=== PATIENT | female | born 1970 | race Caucasian/White ===

== ENCOUNTER 2021-08-30 12:49 | Outpatient (REF) | payer MEDICARE, MEDICAID, SELFPAY ==
--- NOTE | ~2021-08-30 | MR_ITS ---
EXAMINATION: MR BRAIN WITHOUT AND WITH CONTRAST CLINICAL INFORMATION: Epilepsy. COMPARISON: No relevant prior imaging. TECHNIQUE: Multiplanar MR imaging of the brain was performed without and with contrast. A total of 10 mL Gadavist was utilized for this examination. FINDINGS: Dedicated coronal oblique imaging through the temporal lobes reveals symmetric size, signal intensity, and morphological appearance of the hippocampal limitations. No evidence of mesial temporal sclerosis. Postcontrast images reveal no abnormal intracranial mass or enhancement. There is no intracranial mass effect or midline shift. Lateral and third ventricles are normal. No hydrocephalus. Midline structures including the cervicomedullary junction are normal. No acute bone marrow signal changes. There is no acute territorial infarct. No pathological magnetic susceptibility artifact. Intracranial vascular flow voids are maintained. There is a trace left mastoid tip effusion. No active paranasal sinus disease. MR/MR head/brain wo/w con IMPRESSION: Unremarkable examination in that there is no discrete anatomic finding to provide an explanation for this patient's seizures.
== END 2021-08-30 12:50 | disposition home or self-care (01) ==
LOC: HO.MRI 12:49
PROVIDERS: Visit Provider Psychiatry & Neurology Neurology
DX: G40.909 Epilepsy, unspecified, not intractable, without status epilepticus (principal)
CPT/HCPCS: 70553; A9585

== ENCOUNTER 2023-01-07 12:44 | Outpatient (REF) | payer OTHER, SELFPAY ==
[2023-01-07 15:01] LABS: Valproate 72.9 mcg/mL (50.0-100.0)
[2023-01-07 15:08] LABS: Alanine Aminotransferase 8 U/L (0-31); Albumin Level 4.4 g/dL (3.5-5.0); Alkaline Phosphatase 72 U/L (39-117); Aspartate Amino Transferase 10 U/L (5-31); Bilirubin Direct < 0.2 mg/dL (0.0-0.5); Bilirubin Total 0.2 mg/dL (0.0-1.0); Total Protein 7.5 g/dL (6.5-8.0)
== END 2023-01-07 12:45 | disposition home or self-care (01) ==
LOC: HO.LAB 12:44
PROVIDERS: PCP Internal Medicine; Visit Provider Psychiatry & Neurology Neurology
DX: G40.909 Epilepsy, unspecified, not intractable, without status epilepticus (principal)
CPT/HCPCS: 36415; 80076; 80164

== ENCOUNTER 2023-01-22 09:31 | Outpatient (REF) | payer OTHER, SELFPAY ==
--- NOTE | ~2023-01-22 | XR_ITS ---
EXAMINATION: XR HIP, LEFT WITH PELVIS XR LEFT KNEE CLINICAL INFORMATION: Knee pain. Hip pain. COMPARISON: None available. TECHNIQUE: AP view of the pelvis as well as AP and lateral views of the left hip. AP, lateral and sunrise views of the left knee. FINDINGS: Left Knee: Trace joint effusion. Small tricompartmental osteophytes. Mild narrowing of the medial and patellofemoral compartments. AP Pelvis and Left Hip: Degenerative changes on limited views of the lower lumbar spine. Degenerative changes in the bilateral sacroiliac joints, left greater than right. Moderate degenerative changes in the left hip with joint space narrowing and hypertrophic change. Small pelvic calcifications are likely vascular. Moderate degenerative changes on AP view of the right hip. XR/XR knee LT 3V IMPRESSION: 1. Mild degenerative changes left knee. 2. Moderate degenerative changes left hip. MRI recommended if there is clinical concern for fracture or other associated pathology.
--- NOTE | ~2023-01-22 | XR_ITS ---
EXAMINATION: XR HIP, LEFT WITH PELVIS XR LEFT KNEE CLINICAL INFORMATION: Knee pain. Hip pain. COMPARISON: None available. TECHNIQUE: AP view of the pelvis as well as AP and lateral views of the left hip. AP, lateral and sunrise views of the left knee. FINDINGS: Left Knee: Trace joint effusion. Small tricompartmental osteophytes. Mild narrowing of the medial and patellofemoral compartments. AP Pelvis and Left Hip: Degenerative changes on limited views of the lower lumbar spine. Degenerative changes in the bilateral sacroiliac joints, left greater than right. Moderate degenerative changes in the left hip with joint space narrowing and hypertrophic change. Small pelvic calcifications are likely vascular. Moderate degenerative changes on AP view of the right hip. XR/XR hip LT w PEL1V IMPRESSION: 1. Mild degenerative changes left knee. 2. Moderate degenerative changes left hip. MRI recommended if there is clinical concern for fracture or other associated pathology.
== END 2023-01-22 09:32 | disposition home or self-care (01) ==
LOC: HO.HOSX 09:31
PROVIDERS: Visit Provider Physical Medicine & Rehabilitation
DX: M53.3 Sacrococcygeal disorders, not elsewhere classified (principal); M25.552 Pain in left hip; M25.562 Pain in left knee; M54.9 Dorsalgia, unspecified; Z79.899 Other long term (current) drug therapy; G89.29 Other chronic pain
CPT/HCPCS: 73502; 73562; 99202

== ENCOUNTER 2023-01-22 09:31 | Outpatient (AMB) | payer MEDICARE, MEDICAID, SELFPAY ==
--- NOTE | 2023-01-22 09:35 | A.OFFVIS_ITS ---
Intake Vital Signs 01/22/23 09:52 Height 5 ft 5 in Weight 320 lb BMI 53.2 Intake Visit Reasons: [employer]-Back pain Intake Note: Rosi 52 yr old female presents today for a new patient visit for an evaluation of her back pain. States she has had back pain about 1 yr. States she fell about 1 yr ago and felt severe pain about 6 months after. States she has tried and failed P.T. Patient presents today with her sister Nabil(partner alliance manager) states her sisters pain is from her mid lower back. Denies radiating pain to legs. States wearing a back brace helps. 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 Alegria ([facility]), referred from for back pain. Here with sister Nabil. Used to be semi independent but with onset of pain, needing more assistance. Can walk and transfers without assistive device. Assistance with stairs and bathroom. Fell 1 year ago. 6 months later started having back pain. Had PT without relief. Xray done, told to have arthritis. Sister thinks she's just coping with it. She takes tylenol and does stretches. Wearing a back brace which helps. Midline, right sided back pain. Sisters tries to do massage. Non radiation. Has not been complaining of numbness. Gait seems to be baseline. No bladder/bowel changes. 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 She answers questions appropriately. MSK: No specific abnormalities found on inspection of the spine and all extremities. No pain with palpation over the lumbar area. She winced when palpating right SI joint. Lumbar ROM was full. Bilateral hip, knee and ankle ROM WNL. No ligamentous laxity or crepitance. No increased effusion. During gait, she appeared to be favoring left side. Neurological: She said she could not lift hip up (weak left hip flexor?) due to knee pain left. Rest of MMT 5/5. Hernandez?s negative bilaterally. Babinski was down going bilaterally. Clonus was negative. Results Reviewed Results Reviewed: lumbar xray done at 11/07/22 showed loss of disc space at L5-S1 and facet arthritis. I reviewed records from the following: PCP at Assessment & Plan Assessment & Plan (1) Sacroiliac joint dysfunction of left side: Code(s): M53.3 - Sacrococcygeal disorders, not elsewhere classified (2) Left hip pain: Code(s): M25.552 - Pain in left hip (3) Left knee pain: Code(s): M25.562 - Pain in left knee Qualifiers: Chronicity: chronic Qualified Code(s): M25.562 - Pain in left knee; G89.29 - Other chronic pain Plan She was referred for back pain. She had a fall last year. Xrays done at did not report fracture but possible disc space narrowing L5-S1. Her pain is non radicular or she at least does not complain. It appears to be on the SI joint. She has done PT. Massage or manipulation seemed to have helped. Will refer her to chiropractor to work on the SI joint more. As for question of chronic left knee pain and hip flexor weakness, could be related to arthritis? Will do hip and knee xray left today. Assessment and plan discussed with patient, and patient was agreeable. All questions were answered thoroughly. Follow-up in March. Call sooner if pain is more severe. Dary Gu MD, GEORGI Board Certified, [place] Board of Physical Medicine and Rehabilitation (ABPMR) Board Certified, [place] Board of Electrodiagnostic Medicine (ABEM) Orders: Orders XR knee LT 3V Today M25.50 - Pain in unspecified joint XR hip LT min 2V Today M25.552 - Pain in left hip, M25.562 - Pain in left knee Referrals Chiropractic Referral M25.552 - Pain in left hip, M25.562 - Pain in left knee, M53.3 - Sacrococcygeal disorders, not elsewhere classified Coding Level of Care Code New Pt Level 4 (68341) Diagnoses Sacroiliac joint dysfunction of left side M53.3 Left hip pain M25.552 Chronic pain of left knee M25.562; G89.29 Chronicity: chronic
[2023-01-22 09:52] VITALS: BMI 53.2
== END 2023-01-22 10:25 | disposition home or self-care (01) ==
PROVIDERS: Visit Provider Physical Medicine & Rehabilitation
DX: M53.3 Sacrococcygeal disorders, not elsewhere classified (principal); M25.552 Pain in left hip; M25.562 Pain in left knee; G89.29 Other chronic pain
CPT/HCPCS: 99204

== ENCOUNTER 2023-03-25 09:49 | Outpatient (AMB) | payer OTHER, SELFPAY ==
--- NOTE | 2023-03-25 09:51 | A.OFFVIS_ITS ---
Intake Intake Visit Reasons: ov-Left hip pain and knee Intake Note: Rosi is a 53 year old female who presents today with her sister for a follow up of her left hip and back pain. At her last visit with us in january she was referred to chiropractic. She continues to complain of back pain, she has been going to the chiropractor once a week since her last visit with no changes. Increased pain with cold weather. 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 Alegria ([facility]), referred from for back pain. Here with sister Nabil. Used to be semi independent but with onset of pain, needing more assistance. Can walk and transfers without assistive device. Assistance with stairs and bathroom. Fell 1 year ago. 6 months later started having back pain. Had PT without relief. Xray done, told to have arthritis. Sister thinks she's just coping with it. She takes tylenol and does stretches. Wearing a back brace which helps. Midline, right sided back pain. Sisters tries to do massage. Non radiation. Has not been complaining of numbness. Gait seems to be baseline. No bladder/bowel changes. On last visit, she showed signs of SI joint tenderness as well as hip and knee pain, left. She's been going to chiropractor with some relief. She continues to complain of low back pain. Left knee xray showed spurs on patella, laterall displaced on sunrise view. Left hip xray showed mild-moderate space loss. 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 She answers questions appropriately. MSK: No specific abnormalities found on inspection of the spine and all extremities. Diffusely tender, lower back paraspinals and bilateral SI joint. Lumbar ROM was full. Bilateral hip, knee and ankle ROM WNL. No ligamentous laxity or crepitance. No increased effusion. But she complained when ranging hip joints. Bilateral fabere caused back pain, not groni pain. Needed help to lift legs up the table. Neurological: Rest of MMT 5/5. Hernandez?s negative bilaterally. Babinski was down going bilaterally. Clonus was negative. Results Reviewed Results Reviewed: Ordering Physician: Dary Toussaint Date of Service: 01/22/23 Procedure(s): XR knee LT 3V Accession Number(s): [id number] cc: Dary Toussaint~ EXAMINATION: XR HIP, LEFT WITH PELVIS XR LEFT KNEE CLINICAL INFORMATION: Knee pain. Hip pain. COMPARISON: None available. TECHNIQUE: AP view of the pelvis as well as AP and lateral views of the left hip. AP, lateral and sunrise views of the left knee. FINDINGS: Left Knee: Trace joint effusion. Small tricompartmental osteophytes. Mild narrowing of the medial and patellofemoral compartments. AP Pelvis and Left Hip: Degenerative changes on limited views of the lower lumbar spine. Degenerative changes in the bilateral sacroiliac joints, left greater than right. Moderate degenerative changes in the left hip with joint space narrowing and hypertrophic change. Small pelvic calcifications are likely vascular. Moderate degenerative changes on AP view of the right hip. XR/XR knee LT 3V IMPRESSION: 1. Mild degenerative changes left knee. 2. Moderate degenerative changes left hip. MRI recommended if there is clinical concern for fracture or other associated pathology. Assessment & Plan Assessment & Plan (1) Lumbar spondylosis: Code(s): M47.816 - Spondylosis without myelopathy or radiculopathy, lumbar region (2) Sacroiliac joint dysfunction of left side: Code(s): M53.3 - Sacrococcygeal disorders, not elsewhere classified (3) Degenerative joint disease of left hip: Code(s): M16.12 - Unilateral primary osteoarthritis, left hip Qualifiers: Osteoarthritis type: primary Qualified Code(s): M16.12 - Unilateral primary osteoarthritis, left hip (4) Left knee DJD: Code(s): M17.12 - Unilateral primary osteoarthritis, left knee Qualifiers: Osteoarthritis type: primary Qualified Code(s): M17.12 - Unilateral primary osteoarthritis, left knee Plan She had a fall last year. Xrays done at [facility] did not report fracture but possible disc space narrowing L5-S1. Her pain is non radicular but I am still concerned about this. Discussed hip and knee xray by looking at films. Patient had undergone adequate conservative management including chiropractic without improvement of condition. It would be reasonable to obtain further imaging such as MRI. An MRI would help rule out any serious condition, guide treatment and assess prognosis for recovery. Specifically ruling out L5-S1 disc herniation or spinal stenosis. We did discuss possibility of referred to pain management for either hip or lumbar epidural injections. Pending MRI results. Offered left knee injection today but patient is not in severe pain, deferred for now. Assessment and plan discussed with patient, and patient was agreeable. All questions were answered thoroughly. We will touch base with sister once MRI is done. Dary Gu MD, GE[place]GI Board Certified, [place] Board of Physical Medicine and Rehabilitation (ABPMR) Board Certified, [place] Board of Electrodiagnostic Medicine (ABEM) Coding Level of Care Code Est Pt Level 4 (62166) Diagnoses Lumbar spondylosis M47.816 Sacroiliac joint dysfunction of left side M53.3 Primary osteoarthritis of left hip M16.12 Osteoarthritis type: primary Primary osteoarthritis of left knee M17.12 Osteoarthritis type: primary
== END 2023-03-25 10:56 | disposition home or self-care (01) ==
PROVIDERS: PCP Internal Medicine; Visit Provider Physical Medicine & Rehabilitation
DX: M47.816 Spondylosis without myelopathy or radiculopathy, lumbar region (principal); M53.3 Sacrococcygeal disorders, not elsewhere classified; M16.12 Unilateral primary osteoarthritis, left hip; M17.12 Unilateral primary osteoarthritis, left knee
CPT/HCPCS: 99214

== ENCOUNTER → 2023-03-25 09:49 | Outpatient (BNVA) | payer OTHER, SELFPAY | PROVIDERS: PCP Internal Medicine; Visit Provider Physical Medicine & Rehabilitation | DX: M47.816 Spondylosis without myelopathy or radiculopathy, lumbar region (principal); M53.3 Sacrococcygeal disorders, not elsewhere classified; M16.12 Unilateral primary osteoarthritis, left hip; M17.12 Unilateral primary osteoarthritis, left knee | CPT/HCPCS: 99212 ==

== ENCOUNTER 2023-04-16 18:23 | Outpatient (REF) | payer OTHER, SELFPAY ==
--- NOTE | ~2023-04-16 | MR_ITS ---
EXAMINATION: MR LUMBAR SPINE WITHOUT CONTRAST CLINICAL INFORMATION: Spondylosis without myelopathy or radiculopathy, lumbar region. COMPARISON: None available. TECHNIQUE: MRI of the lumbar spine was obtained using routine sequences without contrast. FINDINGS: No listhesis. No abnormal bone marrow signal. The vertebral body heights are preserved. Multilevel disc desiccation without significant disc height loss. Multilevel endplate osteophytosis. The visualized spinal cord is normal in caliber. No abnormal cord signal. The conus medullaris terminates at L1. T12-L1: No significant spinal canal or neural foraminal narrowing. L1-L2: No significant spinal canal or neural foraminal narrowing. L2-3: No significant spinal canal or neural foraminal narrowing. L3-4: No significant spinal canal or neural foraminal narrowing. L4-5: Bilateral facet arthrosis. No significant spinal canal or neural foraminal narrowing. L5-S1: Central disc protrusion with superimposed annular fissure. Bilateral facet arthrosis. No significant spinal canal stenosis. Mild left greater right neural foraminal narrowing with the disc abutting the right exiting L5 nerve roots. The paravertebral soft tissues are unremarkable. MR/MR lumbar spine wo con IMPRESSION: -No significant spinal canal stenosis. -At L5-S1, there is a central disc protrusion with superimposed annular fissure causing mild pcdt-yuzvxas-gspf-right neural foraminal narrowing and abutment of the exiting right L5 nerve roots.
== END 2023-04-16 18:24 | disposition home or self-care (01) ==
LOC: HO.MRI 18:23
PROVIDERS: PCP Internal Medicine; Visit Provider Physical Medicine & Rehabilitation
DX: M47.816 Spondylosis without myelopathy or radiculopathy, lumbar region (principal); M48.061 Spinal stenosis, lumbar region without neurogenic claudication
CPT/HCPCS: 72148

== ENCOUNTER 2023-05-14 12:03 | Outpatient (AMB) | payer OTHER, SELFPAY ==
--- NOTE | 2023-05-14 12:04 | MHC.OFFVIS ---
Intake Intake Visit Reasons: TEL- Lumbar Spine MRI review Intake Note: Rosi is a 53 year old female who presents today VIA phone with her medical care administrator Nabil for a Lumbar Spine MRI review. 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 Alegria ([facility]), referred from for back pain. Here with sister Nabil. Used to be semi independent but with onset of pain, needing more assistance. Can walk and transfers without assistive device. Assistance with stairs and bathroom. Fell 1 year ago. 6 months later started having back pain. Had PT without relief. Xray done, told to have arthritis. Sister thinks she's just coping with it. She takes tylenol and does stretches. Wearing a back brace which helps. Midline, right sided back pain. Sisters tries to do massage. Non radiation. Has not been complaining of numbness. Gait seems to be baseline. No bladder/bowel changes. Left knee xray showed spurs on patella, laterall displaced on sunrise view. Left hip xray showed mild-moderate space loss. Telehealth today to discuss MRI which showed central disc herniation L5-S1. Sister says pain is the same, not resolved, despite chiropractor. 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 COMPARISON: None available. TECHNIQUE: MRI of the lumbar spine was obtained using routine sequences without contrast. FINDINGS: No listhesis. No abnormal bone marrow signal. The vertebral body heights are preserved. Multilevel disc desiccation without significant disc height loss. Multilevel endplate osteophytosis. The visualized spinal cord is normal in caliber. No abnormal cord signal. The conus medullaris terminates at L1. T12-L1: No significant spinal canal or neural foraminal narrowing. L1-L2: No significant spinal canal or neural foraminal narrowing. L2-3: No significant spinal canal or neural foraminal narrowing. L3-4: No significant spinal canal or neural foraminal narrowing. L4-5: Bilateral facet arthrosis. No significant spinal canal or neural foraminal narrowing. L5-S1: Central disc protrusion with superimposed annular fissure. Bilateral facet arthrosis. No significant spinal canal stenosis. Mild left greater right neural foraminal narrowing with the disc abutting the right exiting L5 nerve roots. The paravertebral soft tissues are unremarkable. MR/MR lumbar spine wo con IMPRESSION: -No significant spinal canal stenosis. -At L5-S1, there is a central disc protrusion with superimposed annular fissure causing mild recn-kkeqitn-koci-right neural foraminal narrowing and abutment of the exiting right L5 nerve roots. Assessment & Plan Assessment & Plan (1) Lumbar disc herniation: Code(s): M51.26 - Other intervertebral disc displacement, lumbar region (2) Lumbar spondylosis: Code(s): M47.816 - Spondylosis without myelopathy or radiculopathy, lumbar region (3) Sacroiliac joint dysfunction of left side: Code(s): M53.3 - Sacrococcygeal disorders, not elsewhere classified (4) Degenerative joint disease of left hip: Code(s): M16.12 - Unilateral primary osteoarthritis, left hip Qualifiers: Osteoarthritis type: primary Qualified Code(s): M16.12 - Unilateral primary osteoarthritis, left hip (5) Left knee DJD: Code(s): M17.12 - Unilateral primary osteoarthritis, left knee Qualifiers: Osteoarthritis type: primary Qualified Code(s): M17.12 - Unilateral primary osteoarthritis, left knee Plan She had a fall last year. Xrays done at did not report fracture but possible disc space narrowing L5-S1. Patient had undergone adequate conservative management including chiropractic without improvement of condition. We discussed lumbar MRI results. Showed L5-S1 disc herniation. Discussed option for treatment including injection vs neurosurgery referral. Sister feels that surgery would be very last resort, avoid if possible. They would prefer to trial injection first. Discussed how it could be done and they feel confident Rosi would tolerate the procedure. Referral for Pain Management, L5-S1 interlaminar epidural injection, placed. Assessment and plan discussed with patient, and patient was agreeable. All questions were answered thoroughly. Dary Gu MD, GE[place]GI Board Certified, [place] Board of Physical Medicine and Rehabilitation (ABPMR) Board Certified, [place] Board of Electrodiagnostic Medicine (ABEM) Orders: Referrals Pain Management Referral M51.26 - Other intervertebral disc displacement, lumbar region Coding Level of Care Code Est Pt Level 3 (52994) Diagnoses Lumbar disc herniation M51.26 Lumbar spondylosis M47.816 Sacroiliac joint dysfunction of left side M53.3 Primary osteoarthritis of left hip M16.12 Osteoarthritis type: primary Primary osteoarthritis of left knee M17.12 Osteoarthritis type: primary
== END 2023-05-14 12:20 | disposition home or self-care (01) ==
LOC: HO.HOS 12:03
PROVIDERS: PCP Internal Medicine; Visit Provider Physical Medicine & Rehabilitation
DX: M51.26 Other intervertebral disc displacement, lumbar region (principal); M47.816 Spondylosis without myelopathy or radiculopathy, lumbar region; M53.3 Sacrococcygeal disorders, not elsewhere classified; M16.12 Unilateral primary osteoarthritis, left hip; M17.12 Unilateral primary osteoarthritis, left knee
CPT/HCPCS: 99213

== ENCOUNTER → 2023-05-14 12:03 | Outpatient (BNVA) | payer OTHER, SELFPAY | PROVIDERS: PCP Internal Medicine; Visit Provider Physical Medicine & Rehabilitation | DX: M51.26 Other intervertebral disc displacement, lumbar region (principal); M47.816 Spondylosis without myelopathy or radiculopathy, lumbar region; M53.3 Sacrococcygeal disorders, not elsewhere classified; M16.12 Unilateral primary osteoarthritis, left hip; M17.12 Unilateral primary osteoarthritis, left knee | CPT/HCPCS: 99212 ==

== ENCOUNTER 2023-05-21 14:04 | Outpatient (AMB) | payer OTHER, SELFPAY ==
--- NOTE | 2023-05-21 14:08 | MHC.OFFVIS ---
Intake Vital Signs 05/21/23 14:14 Height 5 ft 5 in Weight 280 lb BMI 46.6 Intake Visit Reasons: Intervertebral Disc Displacement Intake Note: Pain today 07/23 [employer]obile [employer] Travel Counselor Required: No [employer]obile [employer] Travel Counselor Name: Sister- Dainka Accompanied by: Sister Allergies penicillamine Allergy (Intermediate, Verified 05/21/23 14:13) Unknown cephalexin [From Keflex] Allergy (Mild, Verified 05/21/23 14:13) unknown Penicillins Allergy (Unknown, Verified 05/21/23 14:13) Unknown HPI Intervertebral Disc Displacement HPI Details Patient is a pleasant 53 years old female with a history of chronic midline low back pain, left knee and hip pain, 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 Patient was referred to us by Dr. Toussaint, [facility] Physiat[facility] services. She is accompanied by her sister Danika with whom the patient lives and also receives STRUCTURAL STEEL WORKER services. Patient reports mechanical fall a year ago which exacerbated her chronic back pain and since then has been progressively worsening. Pain is worst in the morning with worst pain intensity at 10/10 and least pain intensity at 5/10. Pain affects her daily functioning, mobility, sleep and social activities. Patient completed 12 weeks of physical therapy in August 2022 with no function improvement and very mild pain relief. Back pain is discogenic and axial without radiation into his lower extremities. Denies any weakness, foot drop, bladder or bowel dysfunction or saddle anesthesia. The back pain is function and mobility limiting and has been resistant to conservative treatments. Patient reports a long history of multiple injections, including back injections with good results. Patient and family would like to avoid back surgery and prefer to trial an injection first. Location Mid to lower back and sacral regions Duration Chronic pain for 1 year due to mechanical fall Characteristics of symptom or complaint Aching, stabbing, shooting, sharp, throbbing Aggravating or associated factors Standing, movements, walking, changing positions Relieving factors Tylenol, naproxen, Ibuprofen, back brace Treatment PT and Chiropractor therapies- no improvement. 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 Alert and oriented. Mood and affect appropriate. Follows and participates in conversation appropriately. Respiratory effort is unlabored. No cough. Able to transition from sit to stand unassisted. Mild antalgic gait. Ambulates with bilaterally normal heel strike and toe off. Back/Spine/Pelvis Other: Limited lumbar ROM due to pain. Repetitive lumbar flexion, limited bending and axial rotation reproduces pain. Mild pain with lumbar extension. Moderate TTP in the projection of left sacroiliac joint area. +Tito's and Pelvic compression on the left. Seated straight leg rise with dorsiflexion negative bilaterally. Cervical Spine: cervical ROM normal and No Cervical spine tenderness Thoracic/Lumbar Spine: thoracic and lumbar spine normal to inspection, No Thoracic/lumbar spine scar(s), Lasegue's sign negative, straight leg raise negative bilaterally, pain with thoraco-lumbar ROM, paraspinal muscle tenderness, thoraco-lumbar ROM limited, No thoracic spinal tenderness and lumbar spinal tenderness Pelvis: buttock tenderness on the left Sacroiliac joints: on the right nontender and on the left tender to palpation Results Reviewed Results Reviewed: MR LUMBAR SPINE WITHOUT CONTRAST 04/17/23 CLINICAL INFORMATION: Spondylosis without myelopathy or radiculopathy, lumbar region. FINDINGS: No listhesis. No abnormal bone marrow signal. The vertebral body heights are preserved. Multilevel disc desiccation without significant disc height loss. Multilevel endplate osteophytosis. The visualized spinal cord is normal in caliber. No abnormal cord signal. The conus medullaris terminates at L1. T12-L1: No significant spinal canal or neural foraminal narrowing. L1-L2: No significant spinal canal or neural foraminal narrowing. L2-3: No significant spinal canal or neural foraminal narrowing. L3-4: No significant spinal canal or neural foraminal narrowing. L4-5: Bilateral facet arthrosis. No significant spinal canal or neural foraminal narrowing. L5-S1: Central disc protrusion with superimposed annular fissure. Bilateral facet arthrosis. No significant spinal canal stenosis. Mild left greater right neural foraminal narrowing with the disc abutting the right exiting L5 nerve roots. The paravertebral soft tissues are unremarkable. IMPRESSION: -No significant spinal canal stenosis. -At L5-S1, there is a central disc protrusion with superimposed annular fissure causing mild jcgy-uhwsper-aypv-right neural foraminal narrowing and abutment of the exiting right L5 nerve roots. XR hip LT w PEL1V 01/22/23 IMPRESSION: 1. Mild degenerative changes left knee. 2. Moderate degenerative changes left hip. Assessment & Plan Assessment & Plan (1) Lumbar disc herniation: Code(s): M51.26 - Other intervertebral disc displacement, lumbar region (2) Lumbar spondylosis: Code(s): M47.816 - Spondylosis without myelopathy or radiculopathy, lumbar region (3) Sacroiliac joint dysfunction of left side: Code(s): M53.3 - Sacrococcygeal disorders, not elsewhere classified Plan Schedule L5-S1 interlaminar WAQAR injection with local and fluoroscopy. MRI findings noted for L5-S1 central disc protrusion with superimposed annular fissure. Discussed local vs mild sedation option with patient and family, patient reports history of multiple injections with local anesthesia and good tolerance. Expectations, risks and benefits were reviewed. Patient and family are aware they will be contacted to schedule this procedure. If no relief, patient will pursue Neurosurgical Evaluation at [facility]. All questions were answered and the patient is in agreement of plan. Follow-up after injections and sooner as needed. Justification for interventional therapy: ? Patient with average pain > 6/10 ? Patient has exhausted conservative therapy, NSAIDS, physical and chiropractic therapy The risks, consequences, alternatives, and benefits of various treatment options were discussed with the patient in great detail, including conservative management, injections and procedures. Coding Level of Care Code New Pt Level 4 (80395) Diagnoses Lumbar disc herniation M51.26 Lumbar spondylosis M47.816 Sacroiliac joint dysfunction of left side M53.3
[2023-05-21 14:14] VITALS: BMI 46.6
== END 2023-05-21 14:36 | disposition home or self-care (01) ==
PROVIDERS: PCP Internal Medicine; Referring Provider Physical Medicine & Rehabilitation; Visit Provider Nurse Practitioner Family
DX: M51.26 Other intervertebral disc displacement, lumbar region (principal); M47.816 Spondylosis without myelopathy or radiculopathy, lumbar region; M53.3 Sacrococcygeal disorders, not elsewhere classified
CPT/HCPCS: 99204

== ENCOUNTER → 2023-05-21 14:04 | Outpatient (BNVA) | payer OTHER, SELFPAY | PROVIDERS: PCP Internal Medicine; Referring Provider Physical Medicine & Rehabilitation; Visit Provider Nurse Practitioner Family | DX: M51.26 Other intervertebral disc displacement, lumbar region (principal); M47.816 Spondylosis without myelopathy or radiculopathy, lumbar region; M53.3 Sacrococcygeal disorders, not elsewhere classified | CPT/HCPCS: 99202 ==

== ENCOUNTER 2023-06-11 07:31 | Outpatient (REF) | payer OTHER, SELFPAY ==
--- NOTE | ~2023-06-11 | FL_ITS ---
EXAMINATION: XR FLUOROSCOPY WITH IMAGES CLINICAL INFORMATION: Other intervertebral disc displacement, lumbar region. COMPARISON: Portions of the MRI lumbar spine dated 04/16/2023. TECHNIQUE: Fluoroscopy Supervised By: Dr. Aziza Desouza. Fluoroscopy Time: 0.3 minutes. Cumulative Dose: 8.09 mGy. DAP: 0.0731m Gym2. Images: 2. FINDINGS: The submitted images show an injection needle and injected contrast in the vicinity of the spinal canal at L4-L5, with injected epidural contrast agent. FL/FL guidance in treatment room IMPRESSION: Intraoperative fluoroscopic guidance is provided during lumbar pain management procedure. Please see the patient's Operative Report for full procedural details.
== END 2023-06-11 07:32 | disposition home or self-care (01) ==
LOC: CF 07:31
PROVIDERS: Visit Provider Internal Medicine
DX: M51.26 Other intervertebral disc displacement, lumbar region (principal); M54.16 Radiculopathy, lumbar region
CPT/HCPCS: 62323; J3301; Q9967

== ENCOUNTER 2023-06-11 13:56 | Outpatient (AMB) | payer OTHER, SELFPAY ==
--- NOTE | 2023-06-11 14:55 | A.OFFVIS_ITS ---
Intake Vital Signs 06/11/23 14:56 06/11/23 14:56 Height 5 ft 5 in Weight 280 lb BMI 46.6 BP 138/88 136/86 Blood Pressure Location Lt brachial Lt brachial Position Sitting Sitting Respiration 20 18 Pulse 78 84 Pulse Source Pulse Oximeter Pulse Oximeter Pulse Oximetry (%) 97 98 Oxygen Delivery Method Room Air Room Air Comment Pre-Op Post-Op Intake Visit Reasons: interlaminar L5-S1 WAQAR Allergies penicillamine Allergy (Intermediate, Verified 05/21/23 14:13) Unknown cephalexin [From Keflex] Allergy (Mild, Verified 05/21/23 14:13) unknown Penicillins Allergy (Unknown, Verified 05/21/23 14:13) Unknown HPI interlaminar L5-S1 WAQAR HPI Details Patient presents for scheduled procedure. Denies any recent cough, cold, infection, fever or other significant changes in medical history since last office visit. 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 The patient was placed in the prone position. The lumbosacral area was widely prepped with chloraprep and draped in sterile fashion. Fluoroscopic guidance was used to identify the desired interlaminar space and for needle placement. Subcutaneous 0.5% lidocaine was used to anesthetize the skin overlying the target. A 17 gauge 6 in Touhy needle was advanced to the L5-S1 epidural space using loss of resistance to contrast technique under fluoroscopic AP and con tralateral oblique views. There was probable intrathecal contrast spread noted so the needle was withdrawn. The needle was then placed in the L4-5 epidural space using loss of resistance to saline technique under fluoroscopic AP and contralateral oblique views. There was no evidence of heme or CSF and no paresthesias were elicited with needle placement. Confirmation of epidural needle placement was performed with 1cc of omnipaque 180. Next 2 ml 0.5% lidocaine mixed with 40 mg triamcinolone was administered epidurally with no pain elicited on injection. The needle tract tubing was then cleared with 1 ml of 0.5% lidocaine. The needle was removed, skin cleansed and a sterile bandage was applied. The patient tolerated the procedure well and no complications were encountered. Following the procedure the patient's vital signs were stable. She demonstrated good lower extremity bilateral strength. The patient was discharged home in good condition with post-procedural instructions. Time Out: Immediately prior to the procedure, the following was verbally confirmed that there is a signed consent form and that the correct patient, planned procedure, site and side are consistent with documentation and that necessary equipment and/or blood products are available prior to the start of the case. Complications: none EBL: <5 cc Coding 43031 - Caudal/Lumbar Epidural/Interlaminar with fluoroscopy Procedure code (CPT) selection complete Assessment & Plan Assessment & Plan (1) Lumbar radiculopathy: Code(s): M54.16 - Radiculopathy, lumbar region Plan Patient is status post L4-5 interlaminar WAQAR due to concern for intrathecal needle placement at the L5-S1 level. The patient was counseled regarding possibility of developing PDPH. Patient tolerated procedure well and was discharged home in stable condition with discharge instructions. All questions were answered. We will follow-up via telephone or in clinic to assess response to therapy. A follow-up appointment was made during today's visit. Orders: Orders FL guidance in treatment room Today M51.26 - Other intervertebral disc displacement, lumbar region Coding Level of Care Code Procedure Only Diagnoses Lumbar radiculopathy M54.16 CPT Codes Coding - Joint 11: 43853 - Caudal/Lumbar Epidural/Interlaminar with fluoroscopy ([id number])
[2023-06-11 14:56] VITALS: BP 136/86; BP 138/88; PULSE 78; PULSE 84; RESP 18; RESP 20; O2SAT 97; O2SAT 98; BMI 46.6
== END 2023-06-11 14:57 | disposition home or self-care (01) ==
LOC: HO.PMCPRC 13:56
PROVIDERS: PCP Internal Medicine; Visit Provider Internal Medicine
DX: M54.16 Radiculopathy, lumbar region (principal)
CPT/HCPCS: 62323

== ENCOUNTER 2023-07-08 13:19 | Outpatient (REF) | payer OTHER, SELFPAY ==
[2023-07-08 16:57] LABS: Alanine Aminotransferase 10 U/L (0-31); Albumin Level 4.1 g/dL (3.5-5.0); Alkaline Phosphatase 65 U/L (39-117); Aspartate Amino Transferase 9 U/L (5-31); Bilirubin Direct < 0.2 mg/dL (0.0-0.5); Bilirubin Total 0.2 mg/dL (0.0-1.0); Total Protein 7.1 g/dL (6.5-8.0)
== END 2023-07-08 13:20 | disposition home or self-care (01) ==
LOC: HO.LAB 13:19
PROVIDERS: PCP Internal Medicine; Visit Provider Psychiatry & Neurology Neurology
DX: G40.909 Epilepsy, unspecified, not intractable, without status epilepticus (principal)
CPT/HCPCS: 36415; 80076

== ENCOUNTER 2023-07-10 14:19 | Outpatient (AMB) | payer OTHER, SELFPAY ==
--- NOTE | 2023-07-10 14:26 | A.OFFVIS_ITS ---
Vital Signs 3 07/10/23 14:30 Height 5 ft 5 in Weight 279 lb BMI 46.4 BP 146/78 H Blood Pressure Location Lt brachial Position Sitting Pulse 83 Pulse Source Pulse Oximeter Pulse Oximetry (%) 97 Oxygen Delivery Method Room Air Intake Visit Reasons: s/p interlaminar L5-S1 WAQAR Intake Note: Pain today 07/23 Cheerleading Coach Required: No Accompanied by: Sister Allergies penicillamine Allergy (Intermediate, Verified 05/21/23 14:13) Unknown cephalexin [From Keflex] Allergy (Mild, Verified 05/21/23 14:13) unknown Penicillins Allergy (Unknown, Verified 05/21/23 14:13) Unknown HPI Comments Details: Patient presents today one month status post L4-5 interlaminar WAQAR injection on 06/11/[address] Grimes. L5-S1 level was not attempted per Dr. Grimes due to concern for intrathecal needle placement at the L5-S1 level. The patient denies any symptoms of PDPH after procedure. She reports less than 30% pain relief since injection. Family reports patient continues to have significant daily low back pain which is constant and difficult to manage during the day and night. We will proceed with Neurosurgical evaluation as next steps. Denies any fever, chills, bladder or bowel dysfunction or saddle anesthesia. 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 Patient was referred to us by Dr. Toussaint, [facility] Phys[facility] services. She is accompanied by her sister Danika with whom the patient lives and also receives ASSISTANT NURSE MANAGER services. Patient reports mechanical fall a year ago which exacerbated her chronic back pain and since then has been progressively worsening. Pain is worst in the morning with worst pain intensity at 10/10 and least pain intensity at 5/10. Pain affects her daily functioning, mobility, sleep and social activities. Patient completed 12 weeks of physical therapy in August 2022 with no function improvement and very mild pain relief. Back pain is discogenic and axial without radiation into his lower extremities. Denies any weakness, foot drop, bladder or bowel dysfunction or saddle anesthesia. The back pain is function and mobility limiting and has been resistant to conservative treatments. Patient reports a long history of multiple injections, including back injections with good results. Patient and family would like to avoid back surgery and prefer to trial an injection first. Location Mid to lower back and sacral regions Duration Chronic pain for 1 year due to mechanical fall Characteristics of symptom or complaint Aching, stabbing, shooting, sharp, throbbing Aggravating or associated factors Standing, movements, walking, changing positions Relieving factors Tylenol, naproxen, Ibuprofen, back brace Treatment PT and Chiropractor therapies- no improvement. 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 Alert and oriented. Mood and affect appropriate. Follows and participates in conversation appropriately. Respiratory effort is unlabored. No cough. Able to transition from sit to stand unassisted. Mild antalgic gait. Ambulates with bilaterally normal heel strike and toe off. Back/Spine/Pelvis Other: Limited lumbar ROM due to pain. Repetitive lumbar flexion, limited bending and axial rotation reproduces pain. Mild pain with lumbar extension. Moderate TTP in the projection of left sacroiliac joint area. +Tito's and Pelvic compression on the left. Cervical Spine: cervical ROM normal and No Cervical spine tenderness Thoracic/Lumbar Spine: thoracic and lumbar spine normal to inspection, No Thoracic/lumbar spine scar(s), Lasegue's sign positive bilateral and diffuse, pain with thoraco-lumbar ROM, paraspinal muscle tenderness, thoraco-lumbar ROM limited, No thoracic spinal tenderness and lumbar spinal tenderness Pelvis: buttock tenderness on the left Sacroiliac joints: on the right nontender and on the left tender to palpation Results Reviewed Results Reviewed: MR LUMBAR SPINE WITHOUT CONTRAST 04/17/23 CLINICAL INFORMATION: Spondylosis without myelopathy or radiculopathy, lumbar region. FINDINGS: No listhesis. No abnormal bone marrow signal. The vertebral body heights are preserved. Multilevel disc desiccation without significant disc height loss. Multilevel endplate osteophytosis. The visualized spinal cord is normal in caliber. No abnormal cord signal. The conus medullaris terminates at L1. T12-L1: No significant spinal canal or neural foraminal narrowing. L1-L2: No significant spinal canal or neural foraminal narrowing. L2-3: No significant spinal canal or neural foraminal narrowing. L3-4: No significant spinal canal or neural foraminal narrowing. L4-5: Bilateral facet arthrosis. No significant spinal canal or neural foraminal narrowing. L5-S1: Central disc protrusion with superimposed annular fissure. Bilateral facet arthrosis. No significant spinal canal stenosis. Mild left greater right neural foraminal narrowing with the disc abutting the right exiting L5 nerve roots. The paravertebral soft tissues are unremarkable. IMPRESSION: -No significant spinal canal stenosis. -At L5-S1, there is a central disc protrusion with superimposed annular fissure causing mild dqra-[id number]-zcph-right neural foraminal narrowing and abutment of the exiting right L5 nerve roots. XR hip LT w PEL1V 01/22/23 IMPRESSION: 1. Mild degenerative changes left knee. 2. Moderate degenerative changes left hip. Assessment & Plan Assessment & Plan (1) Lumbar disc herniation: Code(s): M51.26 - Other intervertebral disc displacement, lumbar region Category: Medical (2) Lumbar spondylosis: Code(s): M47.816 - Spondylosis without myelopathy or radiculopathy, lumbar region Category: Medical (3) Sacroiliac joint dysfunction of left side: Code(s): M53.3 - Sacrococcygeal disorders, not elsewhere classified Category: Medical (4) Lumbar radiculopathy: Code(s): M54.16 - Radiculopathy, lumbar region Category: Medical Plan Patient is status post interlaminar L4-L5 WAQAR with minimal to no pain relief. She has exhausted conservative therapy, NSAIDS, physical and chiropractic therapy, WAQAR injection. She also has left sided SIJ tenderness and positive provocative testing. Patient and family are interested to undergo Neurosurgical Evaluation at [facility] prior to any further injections. Script provided for gabapentin at bedtime. Discussed side effects and precautions with patient and family. All questions were answered and the patient is in agreement of plan. Follow-up after Neuro eval and sooner as needed. Orders: Referrals 2 Neurosurgery Referral M47.816 - Spondylosis without myelopathy or radiculopathy, lumbar region, M51.26 - Other intervertebral disc displacement, lumbar region, M54.16 - Radiculopathy, lumbar region Medications: New 2 gabapentin 300 mg PO BID 60 caps 0RF pain 30 days M51.26 - Other intervertebral disc displacement, lumbar region, M54.16 - Radiculopathy, lumbar region Coding Level of Care Code Est Pt Level 4 (71205) Diagnoses Lumbar disc herniation M51.26 Lumbar spondylosis M47.816 Sacroiliac joint dysfunction of left side M53.3 Lumbar radiculopathy M54.16
[2023-07-10 14:30] VITALS: BP 146/78; PULSE 83; O2SAT 97; BMI 46.4
== END 2023-07-10 15:02 | disposition home or self-care (01) ==
PROVIDERS: PCP Internal Medicine; Visit Provider Nurse Practitioner Family
DX: M51.26 Other intervertebral disc displacement, lumbar region (principal); M47.816 Spondylosis without myelopathy or radiculopathy, lumbar region; M53.3 Sacrococcygeal disorders, not elsewhere classified; M54.16 Radiculopathy, lumbar region
CPT/HCPCS: 99214

== ENCOUNTER → 2023-07-10 14:19 | Outpatient (BNVA) | payer OTHER, SELFPAY | PROVIDERS: PCP Internal Medicine; Visit Provider Nurse Practitioner Family | DX: M51.26 Other intervertebral disc displacement, lumbar region (principal); M47.816 Spondylosis without myelopathy or radiculopathy, lumbar region; M53.3 Sacrococcygeal disorders, not elsewhere classified; M54.16 Radiculopathy, lumbar region; Z98.890 Other specified postprocedural states | CPT/HCPCS: 99212 ==

== ENCOUNTER 2023-07-17 12:56 | Outpatient (AMB) | payer OTHER, SELFPAY ==
--- NOTE | 2023-07-17 13:08 | A.SPINEOV_ITS ---
Intake Visit Reasons: Lumbar radiculopathy Intake Note: Ms. Jung is here today c/o back pain. Reading Professor Required: No Allergies penicillamine Allergy (Intermediate, Verified 07/17/23 13:08) Unknown cephalexin [From Keflex] Allergy (Mild, Verified 07/17/23 13:08) unknown Penicillins Allergy (Unknown, Verified 07/17/23 13:08) Unknown Assessment & Plan Assessment & Plan (1) Lumbago: Code(s): M54.50 - Low back pain, unspecified Category: Medical Plan Dear colleague, Thank you for referring Rosi to our office today. She is a pleasant 53-year-old female who comes in today with a chief complaint of low back pain. She reports for low back pain began roughly 1.5 years ago. She states that this may have been related to a fall in which she was playing outside with her dog. She denies any radicular symptoms. She reports she is currently established with pain management and has been attempting cortisone injections with minimal relief. She went to physical therapy for this issue roughly 1 year ago, but also states this only provided minimal relief. She also did 6 weeks of career resource specialist in March, and reports minimal to no relief. She denies any numbness, tingling, weakness. She states that bending and lifting makes her pain worse, and that sitting and lying down help alleviate her pain. She is currently taking gabapentin and ibuprofen to help mitigate her pain. PMH: Seizure disorder, cognitive delay. Social hx: Patient does not smoke, reports no substance use. Medications: Cetirizine, Depakote, ethosuximide, gabapentin, ibuprofen, rosuvastatin. Allergies: Penicillin, Keflex. Physical exam: The patient has 5/5 strength in her upper and lower extremities. She reports no sensational deficits. Her reflexes are 2+ intact. She is able to ambulate well and rises from a seated position without difficulty. (-) bilateral straight leg raise. (-) Hernandez's. (-) clonus. Imaging review: MRI of the lumbar spine completed at [facility], [place] shows a very slight posterior disc bulge at L5-S1 with mild-moderate foraminal stenosis on the right and mild foraminal stenosis on the left. She has mild- moderate facet arthropathy at L3-4. Her MRI is otherwise unremarkable from a neurosurgical standpoint. X-ray imaging completed during this visit shows no significant instability or acute osseous abnormalities in the lumbar spine. Impression: Rosi is a pleasant 53-year-old female who comes in today with a chief complaint of low back pain which began roughly 1.5 years ago. She is unable to pinpoint an exact inciting incident, but states it may be related to a fall she had outside while walking her dog. She denies any radicular pains, and when describing her pain points directly to her upper lumbar spine. She is currently established with pain management and is being evaluated for cortisone injections. At this time her MRI is not surgical. I would advise her to continue follow-up with pain management to see what interventions they can offer for symptom relief. Thank you for allowing us to care for your patient. The total time spent with this visit with this patient was 45 minutes reviewing history, physical exam, lumbar MRI and lumbar x-ray imaging review, and implementation of treatment plan or further diagnostic testing Familia Bee MD,PhD [facility], [place] Orders: Orders XR lumbar spine 4V min Today M54.50 - Low back pain, unspecified Coding Level of Care Code New Pt Level 4 (76831) Diagnoses Lumbago M54.50
== END 2023-07-17 14:05 | disposition home or self-care (01) ==
PROVIDERS: PCP Internal Medicine; Referring Provider Nurse Practitioner Family; Visit Provider Physician Assistant
DX: M54.50 Low back pain, unspecified (principal)
CPT/HCPCS: 99204

== ENCOUNTER 2023-07-17 12:56 | Outpatient (REF) | payer OTHER, SELFPAY ==
--- NOTE | ~2023-07-17 | XR_ITS ---
EXAMINATION: XR LUMBOSACRAL SPINE WITH OBLIQUES CLINICAL INFORMATION: Reason for Exam M54.50 - Low back pain, unspecified COMPARISON: None TECHNIQUE: 3 views of the lumbar spine FINDINGS: 5 nonrib-bearing lumbar-type vertebral bodies. Vertebral body heights are maintained. Alignment is maintained. No instability on flexion extension views. Minimal degenerative change with small anterior disc osteophyte complexes. Disc space heights are maintained. Paravertebral soft tissues are unremarkable. XR/XR lumbar spine 4V min IMPRESSION: Minimal degenerative change with small anterior disc osteophyte complexes. Disc space heights are maintained. No instability on flexion extension views.
== END 2023-07-17 12:57 | disposition home or self-care (01) ==
LOC: HO.HOSX 12:56
PROVIDERS: PCP Internal Medicine; Visit Provider Physician Assistant
DX: M54.50 Low back pain, unspecified (principal)
CPT/HCPCS: 72110; 99202

== ENCOUNTER 2023-10-12 15:15 | Outpatient (AMB) | payer OTHER, SELFPAY ==
--- NOTE | 2023-10-12 15:17 | A.OFFVIS_ITS ---
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 She was seen by [facility] in July 2022 and was deemed non surgical lumbar radicular symptoms at that time. Patient reports chronic mid back pain worsening with prolonged standing, bending or sleeping. She has been utilizaing Salonpas patches, Tylenol Arthritis, heat and ice therapy, back bracing, massage and stretching exercises with continued symptoms. Denies any fever, chills, chest pain, shortness of breath, dizziness, gait instability, bladder or bowel dysfunction or saddle anesthesia. She has gained some weight since last visit. PRIOR: Patient presents today one month status post L4-5 interlaminar WAQAR injection on 06/11/[address] Grimes. L5-S1 level was not attempted per Dr. Grimes due to concern for intrathecal needle placement at the L5-S1 level. The patient denies any symptoms of PDPH after procedure. She reports less than 30% pain relief since injection. Family reports patient continues to have significant daily low back pain which is constant and difficult to manage during the day and night. We will proceed with Neurosurgical evaluation as next steps. Denies any fever, chills, bladder or bowel dysfunction or saddle anesthesia. 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 Patient was referred to us by Dr. Toussaint, [facility]. She is accompanied by her sister Danika with whom the patient lives and also receives DOOR BUILDER services. Patient reports mechanical fall a year ago which exacerbated her chronic back pain and since then has been progressively worsening. Pain is worst in the morning with worst pain intensity at 10/10 and least pain intensity at 5/10. Pain affects her daily functioning, mobility, sleep and social activities. Patient completed 12 weeks of physical therapy in August 2022 with no function improvement and very mild pain relief. Back pain is discogenic and axial without radiation into his lower extremities. Denies any weakness, foot drop, bladder or bowel dysfunction or saddle anesthesia. The back pain is function and mobility limiting and has been resistant to conservative treatments. Patient reports a long history of multiple injections, including back injections with good results. Patient and family would like to avoid back surgery and prefer to trial an injection first. Location Mid to lower back and sacral regions Duration Chronic pain for 1 year due to mechanical fall Characteristics of symptom or complaint Aching, stabbing, shooting, sharp, throbbing Aggravating or associated factors Standing, movements, walking, changing positions Relieving factors Tylenol, naproxen, Ibuprofen, back brace Treatment PT and Chiropractor therapies- no improvement. 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 Alert and oriented. Mood and affect appropriate. Follows and participates in conversation appropriately. Respiratory effort is unlabored. No cough. Able to transition from sit to stand unassisted. Wears back brace. Ambulates with bilaterally normal heel strike and toe off. General: Yes no CVA tenderness Back/Spine/Pelvis Other: Limited thoraco-lumbar ROM due to pain. Repetitive thoraco-lumbar flexion, limited bending and axial rotation reproduces pain. Mild-moderate pain with extension. + TTP in the projection of left sacroiliac joint area. Back: no CVA tenderness Cervical Spine: cervical ROM normal and No Cervical spine tenderness Thoracic/Lumbar Spine: thoracic and lumbar spine normal to inspection, No Thoracic/lumbar spine scar(s), Lasegue's sign negative, straight leg raise negative bilaterally, pain with thoraco-lumbar ROM, paraspinal muscle tenderness, thoraco-lumbar ROM limited, thoracic spinal tenderness (mid-lower thoracic) and lumbar spinal tenderness Pelvis: no buttock tenderness Sacroiliac joints: on the right nontender and on the left tender to palpation Extrem General: Yes capillary refill normal, Yes no clubbing, cyanosis or edema and Yes no calf tenderness Results Reviewed Results Reviewed: MR LUMBAR SPINE WITHOUT CONTRAST 04/17/23 CLINICAL INFORMATION: Spondylosis without myelopathy or radiculopathy, lumbar region. FINDINGS: No listhesis. No abnormal bone marrow signal. The vertebral body heights are preserved. Multilevel disc desiccation without significant disc height loss. Multilevel endplate osteophytosis. The visualized spinal cord is normal in caliber. No abnormal cord signal. The conus medullaris terminates at L1. T12-L1: No significant spinal canal or neural foraminal narrowing. L1-L2: No significant spinal canal or neural foraminal narrowing. L2-3: No significant spinal canal or neural foraminal narrowing. L3-4: No significant spinal canal or neural foraminal narrowing. L4-5: Bilateral facet arthrosis. No significant spinal canal or neural foraminal narrowing. L5-S1: Central disc protrusion with superimposed annular fissure. Bilateral facet arthrosis. No significant spinal canal stenosis. Mild left greater right neural foraminal narrowing with the disc abutting the right exiting L5 nerve roots. The paravertebral soft tissues are unremarkable. IMPRESSION: -No significant spinal canal stenosis. -At L5-S1, there is a central disc protrusion with superimposed annular fissure causing mild lckn-ugflsiv-yylm-right neural foraminal narrowing and abutment of the exiting right L5 nerve roots. XR hip LT w PEL1V 01/22/23 IMPRESSION: 1. Mild degenerative changes left knee. 2. Moderate degenerative changes left hip. Assessment & Plan Assessment & Plan (1) Midline thoracic back pain: Code(s): M54.6 - Pain in thoracic spine Category: Medical (2) Muscle spasm: Code(s): M62.838 - Other muscle spasm Category: Medical (3) Lumbar spondylosis: Code(s): M47.816 - Spondylosis without myelopathy or radiculopathy, lumbar region Category: Medical Plan Thoracic spine imaging to assess degree of degenerative changes, any subluxation, listhesis, compression fractures or pars defects. Continue rest, Tylenol, NSAIDs, ice and heat, topical applications. Avoid pain producing activities, bracing, heavy lifting or strenuous exercises. All questions and concerns have been answered and patient and family agreed with the plan. Follow up for xray results and sooner as needed. Orders: Orders 2 XR thoracic spine 3V Today M54.6 - Pain in thoracic spine, M62.838 - Other muscle spasm Coding Level of Care Code Est Pt Level 4 (77107) Diagnoses Midline thoracic back pain M54.6 Muscle spasm M62.838 Lumbar spondylosis M47.816
[2023-10-12 15:21] VITALS: BP 169/88; PULSE 77; O2SAT 98; BMI 51.6
== END 2023-10-12 15:37 | disposition home or self-care (01) ==
PROVIDERS: PCP Internal Medicine; Visit Provider Nurse Practitioner Family
DX: M54.6 Pain in thoracic spine (principal); M62.838 Other muscle spasm; M47.816 Spondylosis without myelopathy or radiculopathy, lumbar region
CPT/HCPCS: 99213

== ENCOUNTER 2023-10-12 15:15 | Outpatient (REF) | payer OTHER, SELFPAY ==
--- NOTE | ~2023-10-12 | XR_ITS ---
EXAMINATION: XR THORACIC SPINE CLINICAL INFORMATION: Pain in thoracic spine COMPARISON: None available. TECHNIQUE: 4 views of the thoracic spine were obtained. FINDINGS: Vertebral bodies normally aligned with normal height. Multilevel degenerative disc changes manifested by endplate osteophytes throughout the dorsal spine. No fracture or bone lesion. Surrounding bone and soft tissues normal. XR/XR thoracic spine 3V IMPRESSION: Mild multilevel spondylosis of the thoracic spine.
== END 2023-10-12 15:16 | disposition home or self-care (01) ==
LOC: HO.XRAY 15:15
PROVIDERS: PCP Internal Medicine; Visit Provider Nurse Practitioner Family
DX: M54.6 Pain in thoracic spine (principal); M62.838 Other muscle spasm; M47.816 Spondylosis without myelopathy or radiculopathy, lumbar region
CPT/HCPCS: 72072; 99212

== ENCOUNTER 2023-12-21 09:05 | Outpatient (AMB) | payer OTHER, SELFPAY ==
--- NOTE | 2023-12-21 09:08 | A.OFFVIS_ITS ---
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 Patient is accompanied by her sister. Patient is wearing back brace for intermittent use during the day with house chores or in back yard. She denies any significant mid back pain today and reports axial low back pain in the lower spine, worse with movements and cold weather. Denies any radicular symptoms into her lower extremities. She continues to use Salonpas patches, Tylenol Arthritis, heat and ice therapy, back bracing, massage and stretching exercises and completed PT a year ago without significant improvement. Denies any fever, chills, chest pain, shortness of breath, dizziness, gait instability, bladder or bowel dysfunction or saddle anesthesia. PRIOR: Patient presents today one month status post L4-5 interlaminar WAQAR injection on 06/11/[address] Grimes. L5-S1 level was not attempted per Dr. Grimes due to concern for intrathecal needle placement at the L5-S1 level. The patient denies any symptoms of PDPH after procedure. She reports less than 30% pain relief since injection. Family reports patient continues to have significant daily low back pain which is constant and difficult to manage during the day and night. We will proceed with Neurosurgical evaluation as next steps. Denies any fever, chills, bladder or bowel dysfunction or saddle anesthesia. 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 Patient was referred to us by Dr. Toussaint, [facility]iat[facility] services. She is accompanied by her sister Danika with whom the patient lives and also receives PRODUCT DESIGN SPECIALIST services. Patient reports mechanical fall a year ago which exacerbated her chronic back pain and since then has been progressively worsening. Pain is worst in the morning with worst pain intensity at 10/10 and least pain intensity at 5/10. Pain affects her daily functioning, mobility, sleep and social activities. Patient completed 12 weeks of physical therapy in August 2022 with no function improvement and very mild pain relief. Back pain is discogenic and axial without radiation into his lower extremities. Denies any weakness, foot drop, bladder or bowel dysfunction or saddle anesthesia. The back pain is function and mobility limiting and has been resistant to conservative treatments. Patient reports a long history of multiple injections, including back injections with good results. Patient and family would like to avoid back surgery and prefer to trial an injection first. Location Mid to lower back and sacral regions Duration Chronic pain for 1 year due to mechanical fall Characteristics of symptom or complaint Aching, stabbing, shooting, sharp, throbbing Aggravating or associated factors Standing, movements, walking, changing positions Relieving factors Tylenol, naproxen, Ibuprofen, back brace Treatment PT and Chiropractor therapies- no improvement. 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 Morbidly obese. No acute distress. Alert and oriented. Mood and affect appropriate. Follows and participates in conversation appropriately. Respiratory effort is unlabored. No cough. Able to transition from sit to stand unassisted. Wears back brace. Ambulates with bilaterally normal heel strike and toe off. General: Yes no CVA tenderness Back/Spine/Pelvis Other: Limited thoraco-lumbar ROM due to pain. Moderate pain with extension. + TTP in the projection of left sacroiliac joint area. Back: no CVA tenderness Cervical Spine: cervical ROM normal and No Cervical spine tenderness Thoracic/Lumbar Spine: thoracic and lumbar spine normal to inspection, No Thoracic/lumbar spine scar(s), Lasegue's sign negative, straight leg raise negative bilaterally, pain with thoraco-lumbar ROM, paraspinal muscle tenderness, thoraco-lumbar ROM limited, thoracic spinal tenderness (mid-lower thoracic) and lumbar spinal tenderness Pelvis: no buttock tenderness Sacroiliac joints: on the right nontender and on the left tender to palpation Extrem General: Yes capillary refill normal, Yes no clubbing, cyanosis or edema and Yes no calf tenderness Results Reviewed Results Reviewed: MR LUMBAR SPINE WITHOUT CONTRAST 04/17/23 CLINICAL INFORMATION: Spondylosis without myelopathy or radiculopathy, lumbar region. FINDINGS: No listhesis. No abnormal bone marrow signal. The vertebral body heights are preserved. Multilevel disc desiccation without significant disc height loss. Multilevel endplate osteophytosis. The visualized spinal cord is normal in caliber. No abnormal cord signal. The conus medullaris terminates at L1. T12-L1: No significant spinal canal or neural foraminal narrowing. L1-L2: No significant spinal canal or neural foraminal narrowing. L2-3: No significant spinal canal or neural foraminal narrowing. L3-4: No significant spinal canal or neural foraminal narrowing. L4-5: Bilateral facet arthrosis. No significant spinal canal or neural foraminal narrowing. L5-S1: Central disc protrusion with superimposed annular fissure. Bilateral facet arthrosis. No significant spinal canal stenosis. Mild left greater right neural foraminal narrowing with the disc abutting the right exiting L5 nerve roots. The paravertebral soft tissues are unremarkable. IMPRESSION: -No significant spinal canal stenosis. -At L5-S1, there is a central disc protrusion with superimposed annular fissure causing mild yvgf-aolwtjh-asck-right neural foraminal narrowing and abutment of the exiting right L5 nerve roots. XR hip LT w PEL1V 01/22/23 IMPRESSION: 1. Mild degenerative changes left knee. 2. Moderate degenerative changes left hip. XR LUMBOSACRAL SPINE WITH OBLIQUES 07/17/23 CLINICAL INFORMATION: Reason for Exam M54.50 - Low back pain, unspecified Vertebral body heights are maintained. Alignment is maintained. No instability on flexion extension views. Minimal degenerative change with small anterior disc osteophyte complexes. Disc space heights are maintained. Paravertebral soft tissues are unremarkable. IMPRESSION: Minimal degenerative change with small anterior disc osteophyte complexes. Disc space heights are maintained. No instability on flexion extension views. XR THORACIC SPINE 10/12/23 CLINICAL INFORMATION: Pain in thoracic spine. FINDINGS: Vertebral bodies normally aligned with normal height. Multilevel degenerative disc changes manifested by endplate osteophytes throughout the dorsal spine. No fracture or bone lesion. Surrounding bone and soft tissues normal. IMPRESSION: Mild multilevel spondylosis of the thoracic spine. Assessment & Plan Assessment & Plan (1) Lumbar spondylosis: Code(s): M47.816 - Spondylosis without myelopathy or radiculopathy, lumbar region Category: Medical (2) Lumbago: Code(s): M54.50 - Low back pain, unspecified Category: Medical (3) Lumbar degenerative disc disease: Code(s): M51.369 - Other intervertebral disc degeneration, lumbar region without mention of lumbar back pain or lower extremity pain Category: Medical (4) Sacroiliac joint dysfunction of left side: Code(s): M53.3 - Sacrococcygeal disorders, not elsewhere classified Category: Medical (5) Thoracic spondylosis: Code(s): M47.814 - Spondylosis without myelopathy or radiculopathy, thoracic region Category: Medical Plan Discussed thoracic and lumbar spine imaging results were discussed with patient and family today. Schedule diagnostic bilateral L3-L4 DR L5 medial branch blocks with local and fluoroscopy for potential RFA procedure. Expectations, risks and benefits were reviewed. Patient and family are aware they will be contacted to schedule this procedure. We also reviewed therapeutic injections. Patient is not candidate for Sprint PNS trial given history of seizure disorder and intellectual disability. All questions were answered and the patient is in agreement of plan. Follow-up after injections and sooner as needed. Justification for interventional therapy: ? Patient with average pain > 6/10 ? Patient has exhausted conservative therapy, NSAIDS, physical and chiropractic therapy The risks, consequences, alternatives, and benefits of various treatment options were discussed with the patient in great detail, including conservative management, injections and procedures. Medications: New 2 lidocaine 5% 1 patch topically daily; apply to affected area for up to 12 hours per day 1 patch topical DAILY 30 days 30 ea 3RF pain M47.816 - Spondylosis without myelopathy or radiculopathy, lumbar region, M51.369 - Other intervertebral disc degeneration, lumbar region without mention of lumbar back pain or lower extremity pain, M54.50 - Low back pain, unspecified Coding Level of Care Code Est Pt Level 4 (89636) Complex EM visit Add On G2211 Diagnoses Lumbar spondylosis M47.816 Lumbago M54.50 Lumbar degenerative disc disease M51.369 Sacroiliac joint dysfunction of left side M53.3 Thoracic spondylosis M47.814
[2023-12-21 09:14] VITALS: BP 144/66; PULSE 77; O2SAT 98; BMI 51.6
== END 2023-12-21 09:33 | disposition home or self-care (01) ==
PROVIDERS: PCP Internal Medicine; Visit Provider Nurse Practitioner Family
DX: M47.816 Spondylosis without myelopathy or radiculopathy, lumbar region (principal); M54.50 Low back pain, unspecified; M51.369 Other intervertebral disc degeneration, lumbar region without mention of lumbar back pain or lower extremity pain; M53.3 Sacrococcygeal disorders, not elsewhere classified; M47.814 Spondylosis without myelopathy or radiculopathy, thoracic region
CPT/HCPCS: 99214; G2211

== ENCOUNTER → 2023-12-21 09:05 | Outpatient (BNVA) | payer OTHER, SELFPAY | PROVIDERS: PCP Internal Medicine; Visit Provider Nurse Practitioner Family | DX: M54.50 Low back pain, unspecified (principal); M47.816 Spondylosis without myelopathy or radiculopathy, lumbar region; M51.369 Other intervertebral disc degeneration, lumbar region without mention of lumbar back pain or lower extremity pain; M53.3 Sacrococcygeal disorders, not elsewhere classified; M47.814 Spondylosis without myelopathy or radiculopathy, thoracic region | CPT/HCPCS: 99212 ==

== ENCOUNTER 2024-03-03 06:02 | Outpatient (REF) | payer OTHER, SELFPAY ==
--- NOTE | ~2024-03-03 | FL_ITS ---
EXAMINATION: FLUORO GUIDANCE IN TREATMENT ROOM CLINICAL INFORMATION: Other intervertebral disc degeneration, lumbar region without mention of lumbar back pain or lower extremity pain. COMPARISON: None available. TECHNIQUE: Fluoroscopy supervised by: Dr. Anshul Grimes. Fluoroscopy time: 0.1 minutes. Cumulative Dose: 5.93 mGy. DAP: 0.103 mGy-m2 (milligray-meter squared). Images: 2. FINDINGS: Bilateral transforaminal needles are present at 2 consecutive locations in the lower lumbar spine. Injection of contrast appears to be in the epidural space. FL/FL guidance in treatment room IMPRESSION: Fluoroscopy during procedure. Please see procedure report for additional information. Electronically signed by: Kit Pro MD 04/14/2024 07:55 AM PATRICE
--- OUTSIDE RECORDS SUMMARY | 2024-03-03 06:04 | XMS_ITS | Continuity of Care Document ---
Author Organization [facility] Henry C Address [address] [place] [phone] Phone Care Team Providers Care Director University Name Role Phone No Information Unavailable Unavailable Advance Directives Directive Yes / No Effective Date File Name No Information Encounters Encounter Description Practice Location Reason(s) For Visit Diagnoses Date Provider Providers Copied on Encounter [facility]ile[facility], [address] [facility], [place], [place], [id number], tel:[phone] No Information 6199 [id number] No Information Family History Family Member Type Diagnosis Age At Onset No Information Payers Payer name Insurance type Covered libertarian ID Authoriza tion(s) No Information Social History Type Description Quantity Date Captured Comments Sex Female Smoking Status No Information Chief Complaint And Reason For Visit No Information Plan Of Treatment Date Type Action Status No Information History Of Present Illness Encounter Date Complaint History Of Prese nt Illness No Information Instructions Date Instruction Additional Infor mation No Information Assessments Type Assessment Date No Information
== END 2024-03-03 06:03 | disposition home or self-care (01) ==
LOC: CF 06:02
PROVIDERS: Visit Provider Internal Medicine
DX: M51.369 Other intervertebral disc degeneration, lumbar region without mention of lumbar back pain or lower extremity pain (principal); M47.816 Spondylosis without myelopathy or radiculopathy, lumbar region
CPT/HCPCS: 64493; 64494; J2003; J2795; Q9967

== ENCOUNTER 2024-03-03 11:03 | Outpatient (AMB) | payer OTHER, SELFPAY ==
--- OUTSIDE RECORDS SUMMARY | 2024-03-03 11:05 | XMS_ITS | Continuity of Care Document ---
Author Organization [facility] Henry C Address [address] [place] [address] Phone Care Team Providers Care Hotel Services Supervisor Name Role Phone No Information Unavailable Unavailable Advance Directives Directive Yes / No Effective Date File Name No Information Encounters Encounter Description Practice Location Reason(s) For Visit Diagnoses Date Provider Providers Copied on Encounter [facility] Avilez, [address] [facility], [place], [place], [id number], tel:[phone] No Information [id number] No Information Family History Family Member Type Diagnosis Age At Onset No Information Payers Payer name Insurance type Covered republican ID Authoriza tion(s) No Information Social History [...]
--- NOTE | 2024-03-03 11:13 | A.OFFVIS_ITS ---
Vital Signs 03/03/24 11:14 03/03/24 11:57 BP 161/67 H 149/69 H Blood Pressure Location Rt brachial Rt brachial Position Sitting Sitting Pulse 72 73 Pulse Source Pulse Oximeter Pulse Oximeter Pulse Oximetry (%) 98 99 Oxygen Delivery Method Room Air Room Air Intake Visit Reasons: Humza Dx L3-L4-DR-L5 MBB Allergies penicillamine Allergy (Intermediate, Verified 12/21/23 09:14) Unknown cephalexin [From Keflex] Allergy (Mild, Verified 12/21/23 09:14) unknown Penicillins Allergy (Unknown, Verified 12/21/23 09:14) Unknown HPI HPI Humza Dx L3-L4-DR-L5 MBB: Details: Patient presents for scheduled procedure. Denies any recent cough, cold, infection, fever or other significant changes in medical history since last office visit. 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 The patient was placed in a prone position. The respective lumbosacral area was prepped with chloraprep and draped in sterile fashion. The skin over the target medial branch nerves was anesthetized with 0.5% lidocaine. A 22 gauge 5 inch needle was inserted into the target medial branch nerve under fluoroscopic guidance. No paresthesias were elicited with needle placement and aspiration was negative for blood and CSF. Next, 0.2cc of omnipaque 180 was injected to verify positioning. Next 0.5 ml 0.5% ropivicaine was injected (0.5cc total per level). The identical procedure was performed at the remaining levels. The skin was cleansed and a sterile bandage was applied. Following the procedure the patient's vital signs were stable. The patient tolerated the procedure well and no complications were encountered. Following the procedure the patient's vital signs were stable. The patient was discharged home in good condition with post-procedural instructions. Time Out: Immediately prior to the procedure, the following was verbally confirmed that there is a signed consent form and that the correct patient, planned procedure, site and side are consistent with documentation and that necessary equipment and/or blood products are available prior to the start of the case. Complications: none EBL: <5 cc 13044 - with Fluoroscopy (Bilateral) 28614 - second level, with Fluoroscopy Procedure code (CPT) selection complete Assessment & Plan Assessment & Plan (1) Lumbar spondylosis: Code(s): M47.816 - Spondylosis without myelopathy or radiculopathy, lumbar region Category: Medical Plan Patient is status post bilateral diagnostic L3, L4, L5 medial branch blocks. Patient tolerated procedure well and was discharged home in stable condition with discharge instructions. All questions were answered. We will follow-up via telephone or in clinic to assess response to therapy. A follow-up appointment was made during today's visit. Orders: Orders FL guidance in treatment room Today M51.369 - Other intervertebral disc degeneration, lumbar region without mention of lumbar back pain or lower extremity pain Coding Level of Care Code Procedure Only Diagnoses Lumbar spondylosis M47.816 CPT Codes Facet Injection-Lumbar/Sacral - CPT: 11118 - with Fluoroscopy ([id number]) Facet Injection-Lumbar/Sacral - CPT: 21992 - second level, with Fluoroscopy ([id number])
[2024-03-03 11:14] VITALS: BP 161/67; PULSE 72; O2SAT 98
[2024-03-03 11:57] VITALS: BP 149/69; PULSE 73; O2SAT 99
== END 2024-03-03 12:00 | disposition home or self-care (01) ==
LOC: HO.PMCPRC 11:03
PROVIDERS: PCP Internal Medicine; Visit Provider Internal Medicine
DX: M47.816 Spondylosis without myelopathy or radiculopathy, lumbar region (principal)
CPT/HCPCS: 64493; 64494

== ENCOUNTER 2024-03-07 09:54 | Outpatient (AMB) | payer OTHER, SELFPAY ==
--- NOTE | 2024-03-07 09:54 | MHC.OFFVIS ---
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 Grimes. Patient reports 80% pain relief for 3 days following the procedure. She continues to report ongoing 60% pain relief since last week. Family reports patient is able to participate in ADLs better, with improved mobility, standing and better sleep. She is interested to proceed with lumbar medial branch RFA for a longer term pain relief for axial low back pain. Denies any fever, chills, bladder or bowel dysfunction or saddle anesthesia. 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 Patient was referred to us by Dr. Toussaint, [facility] Physiatry services. 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 Patient reports mechanical fall a year ago which exacerbated her chronic back pain and since then has been progressively worsening. Pain is worst in the morning with worst pain intensity at 10/10 and least pain intensity at 5/10. Pain affects her daily functioning, mobility, sleep and social activities. Patient completed 12 weeks of physical therapy in August 2022 with no function improvement and very mild pain relief. Back pain is discogenic and axial without radiation into his lower extremities. Denies any weakness, foot drop, bladder or bowel dysfunction or saddle anesthesia. The back pain is function and mobility limiting and has been resistant to conservative treatments. Patient reports a long history of multiple injections, including back injections with good results. Patient and family would like to avoid back surgery and prefer to trial an injection first. Location Mid to lower back and sacral regions Duration Chronic pain for 1 year due to mechanical fall Characteristics of symptom or complaint Aching, stabbing, shooting, sharp, throbbing Aggravating or associated factors Standing, movements, walking, changing positions Relieving factors Tylenol, naproxen, Ibuprofen, back brace Treatment PT and Chiropractor therapies- no improvement. 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 Morbidly obese. No acute distress. Alert and oriented. Mood and affect appropriate. Follows and participates in conversation appropriately. Respiratory effort is unlabored. No cough. Able to transition from sit to stand unassisted. Ambulates with bilaterally normal heel strike and toe off. General: Yes no CVA tenderness Back/Spine/Pelvis Other: Limited thoraco-lumbar ROM due to pain. Mild to moderate pain with extension. Positive facet loading bilaterally. Back: no CVA tenderness Cervical Spine: cervical ROM normal and No Cervical spine tenderness Thoracic/Lumbar Spine: thoracic and lumbar spine normal to inspection, No Thoracic/lumbar spine scar(s), Lasegue's sign negative, straight leg raise negative bilaterally, pain with thoraco-lumbar ROM (mild), paraspinal muscle tenderness, thoraco-lumbar ROM limited, No thoracic spinal tenderness and No lumbar spinal tenderness Pelvis: no buttock tenderness Sacroiliac joints: bilaterally nontender Results Reviewed Results Reviewed: MR LUMBAR SPINE WITHOUT CONTRAST 04/17/23 CLINICAL INFORMATION: Spondylosis without myelopathy or radiculopathy, lumbar region. FINDINGS: No listhesis. No abnormal bone marrow signal. The vertebral body heights are preserved. Multilevel disc desiccation without significant disc height loss. Multilevel endplate osteophytosis. The visualized spinal cord is normal in caliber. No abnormal cord signal. The conus medullaris terminates at L1. T12-L1: No significant spinal canal or neural foraminal narrowing. L1-L2: No significant spinal canal or neural foraminal narrowing. L2-3: No significant spinal canal or neural foraminal narrowing. L3-4: No significant spinal canal or neural foraminal narrowing. L4-5: Bilateral facet arthrosis. No significant spinal canal or neural foraminal narrowing. L5-S1: Central disc protrusion with superimposed annular fissure. Bilateral facet arthrosis. No significant spinal canal stenosis. Mild left greater right neural foraminal narrowing with the disc abutting the right exiting L5 nerve roots. The paravertebral soft tissues are unremarkable. IMPRESSION: -No significant spinal canal stenosis. -At L5-S1, there is a central disc protrusion with superimposed annular fissure causing mild hayr-nininhh-klnt-right neural foraminal narrowing and abutment of the exiting right L5 nerve roots. XR hip LT w PEL1V 01/22/23 IMPRESSION: 1. Mild degenerative changes left knee. 2. Moderate degenerative changes left hip. XR LUMBOSACRAL SPINE WITH OBLIQUES 07/17/23 CLINICAL INFORMATION: Reason for Exam M54.50 - Low back pain, unspecified Vertebral body heights are maintained. Alignment is maintained. No instability on flexion extension views. Minimal degenerative change with small anterior disc osteophyte complexes. Disc space heights are maintained. Paravertebral soft tissues are unremarkable. IMPRESSION: Minimal degenerative change with small anterior disc osteophyte complexes. Disc space heights are maintained. No instability on flexion extension views. XR THORACIC SPINE 10/12/23 CLINICAL INFORMATION: Pain in thoracic spine. FINDINGS: Vertebral bodies normally aligned with normal height. Multilevel degenerative disc changes manifested by endplate osteophytes throughout the dorsal spine. No fracture or bone lesion. Surrounding bone and soft tissues normal. IMPRESSION: Mild multilevel spondylosis of the thoracic spine. Assessment & Plan Assessment & Plan (1) Lumbar spondylosis: Code(s): M47.816 - Spondylosis without myelopathy or radiculopathy, lumbar region Category: Medical (2) Lumbago: Code(s): M54.50 - Low back pain, unspecified Category: Medical (3) Lumbar degenerative disc disease: Code(s): M51.369 - Other intervertebral disc degeneration, lumbar region without mention of lumbar back pain or lower extremity pain Category: Medical Plan Schedule Bilateral L3-L4 DR L5 medial branch RFA with sedation and fluoroscopy given good results with diagnostic lumbar medial branch blocks. Expectations, risks and benefits were reviewed. Patient and family are aware they will be contacted to schedule this procedure. We also reviewed therapeutic injections. Patient is not candidate for Sprint PNS trial given history of seizure disorder and intellectual disability. All questions were answered and the patient is in agreement of plan. Follow-up after RFA and sooner as needed. Justification for interventional therapy: ? Patient with average pain > 6/10 ? Patient has exhausted conservative therapy, NSAIDS, physical and chiropractic therapy ? Diagnostic Bilateral L3-L4 DR L5 MBB-80% pain relief for 3 days The risks, consequences, alternatives, and benefits of various treatment options were discussed with the patient in great detail, including conservative management, injections and procedures. Coding Level of Care Code Est Pt Level 3 (43063) Complex EM visit Add On G2211 Diagnoses Lumbar spondylosis M47.816 Lumbago M54.50 Lumbar degenerative disc disease M51.369
[2024-03-07 09:58] VITALS: BP 137/88; PULSE 89; O2SAT 98; BMI 51.6
== END 2024-03-07 10:11 | disposition home or self-care (01) ==
PROVIDERS: PCP Internal Medicine; Visit Provider Nurse Practitioner Family
DX: M47.816 Spondylosis without myelopathy or radiculopathy, lumbar region (principal); M54.50 Low back pain, unspecified; M51.369 Other intervertebral disc degeneration, lumbar region without mention of lumbar back pain or lower extremity pain
CPT/HCPCS: 99213; G2211

== ENCOUNTER → 2024-03-07 09:54 | Outpatient (BNVA) | payer OTHER, SELFPAY | PROVIDERS: PCP Internal Medicine; Visit Provider Nurse Practitioner Family | DX: M47.816 Spondylosis without myelopathy or radiculopathy, lumbar region (principal); M54.50 Low back pain, unspecified; M51.369 Other intervertebral disc degeneration, lumbar region without mention of lumbar back pain or lower extremity pain | CPT/HCPCS: 99212 ==

== ENCOUNTER 2024-06-02 06:20 | Outpatient (REF) | payer OTHER, SELFPAY ==
--- NOTE | ~2024-06-02 | FL_ITS ---
EXAMINATION: FL GUIDANCE ONLY HISTORY: M47.816 - Spondylosis without myelopathy or radiculopathy, lumbar region COMPARISON: None available. TECHNIQUE: Fluoroscopy time: 0.1 minutes. Cumulative Dose: 2.63 mGy. DAP: 0.0452 mGym2 Images: 2. FINDINGS: Fluoroscopic spot films of the lumbar spine demonstrate needles and contrast material in the regions of the bilateral L3-4, L4-5, and L5-S1 facet joints. FL/FL guidance in treatment room IMPRESSION: Fluoroscopy during procedure. Please see procedure report for additional information. Electronically signed by: Nahum Schmid MD 06/02/2024 02:56 PM EDT
== END 2024-06-02 06:21 | disposition home or self-care (01) ==
LOC: CF 06:20
PROVIDERS: Visit Provider Internal Medicine
DX: M47.816 Spondylosis without myelopathy or radiculopathy, lumbar region (principal)
CPT/HCPCS: J2003; J2795; Q9967

== ENCOUNTER 2024-06-02 11:16 | Outpatient (AMB) | payer OTHER, SELFPAY ==
[2024-06-02 11:26] VITALS: BP 122/98; PULSE 73; RESP 16; O2SAT 100
--- NOTE | 2024-06-02 11:26 | MHC.OFFVIS ---
Vital Signs 06/02/24 11:26 06/02/24 12:26 BP 122/98 H 139/86 Blood Pressure Location Lt radial Rt radial Position Sitting Sitting Respiration 16 16 Pulse 73 70 Pulse Source Pulse Oximeter Pulse Oximeter Pulse Oximetry (%) 100 100 Oxygen Delivery Method Room Air Room Air Intake Visit Reasons: Repeat Humza Dx L3-L4-DR-L5 MBB Music Manager Required: No Allergies penicillamine Allergy (Intermediate, Verified 06/02/24 11:27) Unknown cephalexin [From Keflex] Allergy (Mild, Verified 06/02/24 11:27) unknown Penicillins Allergy (Unknown, Verified 06/02/24 11:27) Unknown Medication List - Last Reconciled 06/02/24 by Sepideh Moser LPN cetirizine 10 mg PO DAILY PRN divalproex ER (Depakote ER) 500 mg PO BID ethosuximide mg PO gabapentin 300 mg PO BID 30 days ibuprofen 1,200 mg PO BID rosuvastatin 5 mg PO DAILY HPI HPI Repeat Humza Dx L3-L4-DR-L5 MBB: Details: Patient presents for scheduled procedure. Denies any recent cough, cold, infection, fever or other significant changes in medical history since last office visit. 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 The patient was placed in a prone position. The respective lumbosacral area was prepped with chloraprep and draped in sterile fashion. The skin over the target medial branch nerves was anesthetized with 0.5% lidocaine. A 22 gauge 3.5 inch needle was inserted into the target medial branch nerve under fluoroscopic guidance. No paresthesias were elicited with needle placement and aspiration was negative for blood and CSF. Next, 0.2cc of omnipaque 180 was injected to verify positioning. Next 0.5 ml 0.5% ropivicaine was injected (0.5cc total per level). The identical procedure was performed at the remaining levels. The skin was cleansed and a sterile bandage was applied. Following the procedure the patient's vital signs were stable. The patient tolerated the procedure well and no complications were encountered. Following the procedure the patient's vital signs were stable. The patient was discharged home in good condition with post-procedural instructions. Time Out: Immediately prior to the procedure, the following was verbally confirmed that there is a signed consent form and that the correct patient, planned procedure, site and side are consistent with documentation and that necessary equipment and/or blood products are available prior to the start of the case. Complications: none EBL: <5 cc 81318 - with Fluoroscopy (bilateral) 57141 - second level, with Fluoroscopy Procedure code (CPT) selection complete Assessment & Plan Assessment & Plan (1) Lumbar spondylosis: Code(s): M47.816 - Spondylosis without myelopathy or radiculopathy, lumbar region Category: Medical Plan Patient is status post bilateral lower lumbar MBBs. Patient tolerated procedure well and was discharged home in stable condition with discharge instructions. All questions were answered. We will follow-up via telephone or in clinic to assess response to therapy. A follow-up appointment was made during today's visit. Orders: Orders FL guidance in treatment room 06/02/24 M47.816 - Spondylosis without myelopathy or radiculopathy, lumbar region Coding Level of Care Code Procedure Only Diagnoses Lumbar spondylosis M47.816 CPT Codes Facet Injection-Lumbar/Sacral - CPT: 15544 - with Fluoroscopy ([id number]) Facet Injection-Lumbar/Sacral - CPT: 17138 - second level, with Fluoroscopy ([id number])
[2024-06-02 12:26] VITALS: BP 139/86; PULSE 70; RESP 16; O2SAT 100
== END 2024-06-02 12:26 | disposition home or self-care (01) ==
LOC: HO.PMCPRC 11:16
PROVIDERS: PCP Internal Medicine; Visit Provider Internal Medicine
DX: M47.816 Spondylosis without myelopathy or radiculopathy, lumbar region (principal)
CPT/HCPCS: 64493; 64494

== ENCOUNTER 2024-06-09 13:09 | Outpatient (AMB) | payer OTHER, SELFPAY ==
--- NOTE | 2024-06-09 13:11 | A.OFFVIS_ITS ---
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 Grimes. Patient reports 80-90% pain relief for 2-3 days following the procedure enhancing her overall function and reducing the necessity for a back brace. Pain levels are subject to increase with physical activity, notably walking, reaching 8-10/10 at high activity levels. Increased sleep quality and daily functional ability have been positive outcomes of the recent interventions. She is interested to proceed with lumbar medial branch RFA for a longer term pain relief for axial low back pain. Denies any fever, chills, bladder or bowel dysfunction or saddle anesthesia. - Onset/Timing: Chronic in nature, exacerbated with physical activity. - Quality/Character: Localized to the lower back, described as moderate to severe. - Primary Location: Lower back. - Areas of Radiation: None reported. - Exacerbating Factors: Prolonged walking, increased physical activity. - Relieving Factors: Diagnostic lumbar medial branch blocks provided temporary relief. - Interference with Function: Affects mobility, sleep, and general functionality when pain is acute. - Affect: Pain impacts mood and daily functioning, though relief episodes show improved psychological outlook. - Analgesia: Diagnostic lumbar medial branch blocks, temporary but significant relief (80-90%), current pain level at baseline is 5/10. - Adverse Effects: None reported as part of pain management strategy. - Activities of Daily Living: Pain limits mobility and ability to perform tasks during exacerbations, however, pain relief led to improved function and decreased need for support aids like a back brace. - Aberrant Drug-Related Behaviors: None reported. 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 Patient was referred to us by Dr. Toussaint, [facility] Physiatry services. She is accompanied by her sister Danika with whom the patient lives and also receives [employer]IST services. Patient reports mechanical fall a year ago which exacerbated her chronic back pain and since then has been progressively worsening. Pain is worst in the morning with worst pain intensity at 10/10 and least pain intensity at 5/10. Pain affects her daily functioning, mobility, sleep and social activities. Patient completed 12 weeks of physical therapy in August 2022 with no function improvement and very mild pain relief. Back pain is discogenic and axial without radiation into his lower extremities. Denies any weakness, foot drop, bladder or bowel dysfunction or saddle anesthesia. The back pain is function and mobility limiting and has been resistant to conservative treatments. Patient reports a long history of multiple injections, including back injections with good results. Patient and family would like to avoid back surgery and prefer to trial an injection first. Location Mid to lower back and sacral regions Duration Chronic pain for 1 year due to mechanical fall Characteristics of symptom or complaint Aching, stabbing, shooting, sharp, throbbing Aggravating or associated factors Standing, movements, walking, changing positions Relieving factors Tylenol, naproxen, Ibuprofen, back brace Treatment PT and Chiropractor therapies- no improvement. 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 Morbidly obese. No acute distress. Alert and oriented. Mood and affect appropriate. Follows and participates in conversation appropriately. Respiratory effort is unlabored. No cough. Able to transition from sit to stand unassisted. Ambulates with bilaterally normal heel strike and toe off. General: Yes no CVA tenderness Back/Spine/Pelvis Other: Limited thoraco-lumbar ROM due to pain. Mild to moderate pain with extension. Positive facet loading bilaterally. Back: no CVA tenderness Cervical Spine: cervical ROM normal and No Cervical spine tenderness Thoracic/Lumbar Spine: thoracic and lumbar spine normal to inspection, No Thoracic/lumbar spine scar(s), Lasegue's sign negative, straight leg raise negative bilaterally, pain with thoraco-lumbar ROM (mild), paraspinal muscle tenderness, thoraco-lumbar ROM limited, No thoracic spinal tenderness and No lumbar spinal tenderness Pelvis: no buttock tenderness Sacroiliac joints: bilaterally nontender Extrem General: Yes capillary refill normal, Yes no clubbing, cyanosis or edema and Yes no calf tenderness Results Reviewed Results Reviewed: MR LUMBAR SPINE WITHOUT CONTRAST 04/17/23 CLINICAL INFORMATION: Spondylosis without myelopathy or radiculopathy, lumbar region. FINDINGS: No listhesis. No abnormal bone marrow signal. The vertebral body heights are preserved. Multilevel disc desiccation without significant disc height loss. Multilevel endplate osteophytosis. The visualized spinal cord is normal in caliber. No abnormal cord signal. The conus medullaris terminates at L1. T12-L1: No significant spinal canal or neural foraminal narrowing. L1-L2: No significant spinal canal or neural foraminal narrowing. L2-3: No significant spinal canal or neural foraminal narrowing. L3-4: No significant spinal canal or neural foraminal narrowing. L4-5: Bilateral facet arthrosis. No significant spinal canal or neural foraminal narrowing. L5-S1: Central disc protrusion with superimposed annular fissure. Bilateral facet arthrosis. No significant spinal canal stenosis. Mild left greater right neural foraminal narrowing with the disc abutting the right exiting L5 nerve roots. The paravertebral soft tissues are unremarkable. IMPRESSION: -No significant spinal canal stenosis. -At L5-S1, there is a central disc protrusion with superimposed annular fissure causing mild xszm-[id number]-cpfl-right neural foraminal narrowing and abutment of the exiting right L5 nerve roots. XR hip LT w PEL1V 01/22/23 IMPRESSION: 1. Mild degenerative changes left knee. 2. Moderate degenerative changes left hip. XR LUMBOSACRAL SPINE WITH OBLIQUES 07/17/23 CLINICAL INFORMATION: Reason for Exam M54.50 - Low back pain, unspecified Vertebral body heights are maintained. Alignment is maintained. No instability on flexion extension views. Minimal degenerative change with small anterior disc osteophyte complexes. Disc space heights are maintained. Paravertebral soft tissues are unremarkable. IMPRESSION: Minimal degenerative change with small anterior disc osteophyte complexes. Disc space heights are maintained. No instability on flexion extension views. XR THORACIC SPINE 10/12/23 CLINICAL INFORMATION: Pain in thoracic spine. FINDINGS: Vertebral bodies normally aligned with normal height. Multilevel degenerative disc changes manifested by endplate osteophytes throughout the dorsal spine. No fracture or bone lesion. Surrounding bone and soft tissues normal. IMPRESSION: Mild multilevel spondylosis of the thoracic spine. Assessment & Plan Assessment & Plan (1) Lumbar spondylosis: Code(s): M47.816 - Spondylosis without myelopathy or radiculopathy, lumbar region Category: Medical (2) Lumbago: Code(s): M54.50 - Low back pain, unspecified Category: Medical (3) Lumbar degenerative disc disease: Code(s): M51.369 - Other intervertebral disc degeneration, lumbar region without mention of lumbar back pain or lower extremity pain Category: Medical Plan Schedule Bilateral L3-L4 DR L5 medial branch RFA with sedation and fluoroscopy given good results with two sets of diagnostic lumbar medial branch blocks. Expectations, risks and benefits were reviewed. Patient and family are aware they will be contacted to schedule this procedure. We also reviewed therapeutic injections. Patient is not candidate for Sprint PNS trial given history of seizure disorder and intellectual disability. All questions were answered and the patient is in agreement of plan. Follow-up after RFA and sooner as needed. Justification for interventional therapy: ? Patient with average pain > 6/10 ? Patient has exhausted conservative therapy, NSAIDS, physical and chiropractic therapy ? Diagnostic Bilateral L3-L4 DR L5 MBB-80% pain relief for 3 days for #1 and 80- 90% for 2-3 days for #2 set of injections The risks, consequences, alternatives, and benefits of various treatment options were discussed with the patient in great detail, including conservative management, injections and procedures. Patient was informed and verbally consented to the use of an ambient scribe for clinic note documentation during this visit. Patient Instructions: I reviewed the plan for lumbar medial branch radiofrequency ablation with the patient and her sister, who is patient's primary caregiver, providing thorough details surrounding the procedure's potential benefits, such as extended pain relief beyond her previous injections. We discussed the procedure's risks, including infection and nerve damage, and the options for sedation, emphasizing her comfort and safety. I highlighted the importance of obtaining insurance authorization to proceed with scheduling. The patient voiced understanding and consented to the outlined treatment plan. - Wait to be contacted regarding insurance approval for the radiofrequency ablation procedure. - Upon procedure approval, prepare for follow-up scheduling and plan for transportation post-procedure due to sedation effects. - Monitor pain levels and report any substantial changes or concerns. - Resume use of pain diary to track effectiveness of interventions and daily functional impact. Coding Level of Care Code Est Pt Level 3 (24431) Complex EM visit Add On G2211 Diagnoses Lumbar spondylosis M47.816 Lumbago M54.50 Lumbar degenerative disc disease M51.369
[2024-06-09 13:15] VITALS: BP 141/86; PULSE 81; O2SAT 97; BMI 51.6
--- OUTSIDE RECORDS SUMMARY | 2024-06-09 16:16 | XMS_ITS | Clinical Summary ---
Author Organization [facility] ity Address [address] [place] [address] Care Team Providers Care Sponge Fisherman Name Role Phone Sukhdev Lockwood MD Primary Care Provider [phone] Allergies Active Allergy Reactions Criticality Noted Date Comments Cephalexin 07/01/2021 Keflex Penicillin G 07/01/2021 Medications rosuvastatin (CRESTOR) 5 mg tablet TAKE 1 TABLET BY MOUTH EVERY DAY 90 tablet 5 Active rosuvastatin (CRESTOR) 5 mg tablet Take 1 tablet (5 mg total) by mouth 1 (one) time each day. 4 Active acetaminophen (TYLENOL 8 HOUR) 650 mg 8 hr tablet acetaminophen (TYLENOL) 650 MG CR tablet Take 1 Tablet by mouth every 8 hours as needed. Active cetirizine (ZyrTEC) 10 mg tablet TAKE 1 TABLET BY MOUTH DAILY NEEDED (ALLERGY). 2 Active divalproex (DEPAKOTE) [address] tablet divalproex (DEPAKOTE) 500 MG EC tablet Take 1 Tablet by mouth 3 times daily 2 Active ethosuximide (ZARONTIN) 250 mg capsule Take 1 Capsule by mouth 3 times daily. 2 Active Active Problems Problem Noted Date Diagnosed Date Mild intellectual disability 07/01/2021 Overview (05/16/2024): With sister, who is her guardian, at provider visits. Seizure disorder 07/01/2021 Overview (05/16/2024): Neuro visit 05/16/2020, tolerating her meds, no seizures. Immunizations Name Administration Dates Next Due Influenza Quadravalent, MDCK , 0.5ml, preservative free (Flucelvax) 6mo and older 01/17/2022 Pfizer SARS-CoV-2 COVID-19, mRNA, LNP-S, preservative free 05/14/2021 Tdap Tetanus diptheria acell ular pertussis (Boostrix; Adacel) 7yo and older 07/18/2022 Surgical History Surgery Date Site/Laterality Comments OTHER SURGICAL HISTORY PROCEDURE: DENIES PREVIOUS SURGERY COLONOSCOPY 12/05/2021 PROCEDURE: HISTORICAL COLONOSCOPY; COMMENT: tubular adenomas Medical History Medical History Date Comments Seizure disorder (CMS/HCC) 07/01/2021 DX:Se izure disorder ([facility]); COMMENT: Neuro visit 05/16/2020, tolerating her meds, no seizures. Mild mental subnormality 07/01/2021 DX:Mild mental subnormality; COMMENT: With sister, who is her guardian, at provider visits. 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 Family History Medical History Relation Name Comments Coronary artery disease Father Stroke Father Coronary artery disease Maternal Grandmother Lung cancer Mother Coronary artery disease Paternal Grandmother No Known Problems Sister Relation Name Status Comments Father Maternal Grandfather Maternal Grandmother Mother Paternal Grandfather Paternal Grandmother Sister Alive Social History Tobacco Use Types Packs/Day Years Used Date Smoking Tobacco: Never Smokeless Tobacco: Never Alcohol Use Standard Drinks/Week Comments Never 0 (1 standard drink = 0.6 oz pur e alcohol) Comments Unknown Sex and Gender Information Value Date Recorded Sex Assigned at Not on file Legal Sex Female 4:59 PM EST Gender Identity Not on file Sexual Orientation Not on file Obstetrics History Last Filed Vital Signs Vital Sign Reading Time Taken Comments Blood Pressure 130/80 11/11/2023 4:40 PM EDT L A rm Pulse 83 11/11/2023 4:26 PM EDT Temperature - - Respiratory Rate - - Oxygen Saturation - - Inhaled Oxygen Concentration - - Weight 117 kg (257 lb 9.6 oz) 11/11/2023 4:26 PM EDT Height 161.3 cm (5' 3.5 ) 11/11/2023 4:26 PM EDT Body Mass Index 44.92 11/11/2023 4:26 PM EDT Plan of Treatment Upcoming Encounters Date Type Department Care Team (Late st Contact Info) Description 11/11/2024 3:00 PM EDT Office Visit Internal Medicine - [facility] [address] [place] [phone] Sukhdev Lockwood MD [address] [place] [address] Health Maintenance Due Date Last Done Comments Breast Cancer Screening 1969 Hepatitis B Vaccines (1 of 3 - 19+ 3-dose series) 1988 Cervical Cancer Screening: P ap Smear 1990 Pneumococcal Vaccine: 50+ Years (1 of 1 - PCV) 2019 Zoster Vaccines (1 of 2) 2019 HIV Screening 02/12/2022 Medicare Annual Wellness Visit 02/12/2022 Social Influencers of Health Screening 02/12/2022 COVID-19 Vaccine (4 - 2023-2 5 season) 2023 05/14/2021, 07/15/2020, 06/23/2020 Influenza Vaccine (#1) 2023 01/17/2022 Depression Screening 11/10/2024 11/11/2023 Colorectal Cancer Screening: Colonoscopy 12/05/2026 12/05/2021 Cholesterol Screening (Lipid Panel) 11/10/2028 11/11/2023, 11/11/2023 DTaP,Tdap,and Td Vaccines (2 - Td or Tdap) 07/18/2032 07/18/2022 Hepatitis C Screening Completed 07/18/2022 HIB Vaccines Aged Out No longer eligi ble based on patient's age to complete this topic HPV Vaccines Aged Out No longer eligi ble based on patient's age to complete this topic Hepatitis A Vaccines Aged Out No long er eligible based on patient's age to complete this topic IPV Vaccines Aged Out No longer eligi ble based on patient's age to complete this topic MMR Vaccines Aged Out No longer eligi ble based on patient's age to complete this topic Meningococcal ACWY Vaccine Aged Out N o longer eligible based on patient's age to complete this topic Meningococcal B Vacine Aged Out No lo nger eligible based on patient's age to complete this topic Pneumococcal Vaccine: Pediatrics (0 to 5 Years) and At-Risk Patients (6 to 64 Years) Aged Out No longer eligible b ased on patient's age to complete this topic RSV Immunization Patients Under 20 months Aged Out No longer eligible b ased on patient's age to complete this topic Varicella Vaccines Aged Out No longer eligible based on patient's age to complete this topic Procedures Procedure Name Priority Date/Time Associated Diagnosis Comments DEPRESSION SCREENING Routine 11/11/2023 LIPID PANEL Routine 11/11/2023 HEPATITIS C SCREENING Routine 07/18/2022 COLONOSCOPY Routine 12/05/2021 from Last 3 Months or Most Recently Relevant to Health Maintenance Results * Depression Screening (11/11/2023) [facility] Depression Screening abstracted Result [facility] Provider HEALTH MAINTENANCE Final Result * (ABNORMAL) Lipid panel (11/11/2023) [facility] LDL/HDL Ratio 4 0 - 4 Triglycerides 262(A) 0 - 150 mg/dL Cholesterol 221(A) 0 - 200 mg/dL HDL 50 >=40 mg/dL LDL Cholesterol 119(A) 0 - 100 mg/dL Blood Venous blood specimen / Unknown Result [facility] Provider LAB BLOOD ORDERABLES Jaqueline l Result * Hepatitis C Screening (07/18/2022) [facility] Hepatitis C Screening abstracted [facility] Provider HEALTH MAINTENANCE Final Result * Colonoscopy (12/05/2021) [facility] Colonoscopy no interpretation , abstracted Anatomical Region Laterality Modality Other [facility] Provider HEALTH MAINTENANCE Final Result from Last 3 Months or Most Recently Relevant to Health Maintenance Insurance [facility] MEDICARE Member Subscriber Plan / Payer (Ef fective 2022-Present) Name:Rosi Jung Relation to Subscriber:Self Name:Rosi Jung Payer ID:[id number] Group ID:[id number] Type:Not on file Address: [place] [address] [place] [id number] Advance Directives Documents on File Type Date Recorded Patient Sponge Buffer Expl anation Health Care Decision (hx) 12/09/2021 AD LOPEZ DIRECTIVE Health Care Decision (hx) 12/09/2021 AD LOPEZ DIRECTIVE Care Teams Sponge Fisherman Relationship Specialty Start Date End Date Sukhdev Lockwood MD [address] [place] [address] [place] [id number] PCP - General Internal Medicine 05/14/21
== END 2024-06-09 13:22 | disposition home or self-care (01) ==
LOC: HO.PMC 13:10
PROVIDERS: PCP Internal Medicine; Visit Provider Nurse Practitioner Family
DX: M47.816 Spondylosis without myelopathy or radiculopathy, lumbar region (principal); M54.50 Low back pain, unspecified; M51.369 Other intervertebral disc degeneration, lumbar region without mention of lumbar back pain or lower extremity pain
CPT/HCPCS: 99213; G2211

== ENCOUNTER → 2024-06-09 13:09 | Outpatient (BNVA) | payer OTHER, SELFPAY | PROVIDERS: PCP Internal Medicine; Visit Provider Nurse Practitioner Family | DX: M47.816 Spondylosis without myelopathy or radiculopathy, lumbar region (principal); M51.360 Other intervertebral disc degeneration, lumbar region with discogenic back pain only | CPT/HCPCS: 99212 ==

== ENCOUNTER 2024-08-24 09:22 | Day surgery (SDC) | payer OTHER, SELFPAY ==
[2024-08-23 08:58] VITALS: BMI 51.6
--- NOTE | 2024-08-23 13:51 | HO.ANESPROP2 ---
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 sister signs consents COUNTS INCLUDE 234 BEDS AT THE [facility] Active Problems Active Problems: All Active Problems Thoracic spondylosis (Acute) Lumbar degenerative disc disease (Acute) Muscle spasm (Acute) Midline thoracic back pain (Acute) Lumbago (Acute) Lumbar radiculopathy (Acute) Degenerative joint disease of left hip (Acute) Left knee pain (Acute) Left hip pain (Acute) Lumbar disc herniation (Acute) Left knee DJD (Acute) Lumbar spondylosis (Acute) Sacroiliac joint dysfunction of left side (Acute) Past Medical History Medical History Lumbago Chronic midline low back pain without sciatica Mixed hyperlipidemia Mild intellectual disability Seizure disorder Degenerative joint disease of left hip Left knee pain Left hip pain Lumbar spondylosis Social History Social History Patient Tobacco Use Status: Former Tobacco user Smoked in Last 30 Days: No Use of substances other than those prescribed or required for medical reasons: No Have you been hit, kicked, punched, or otherwise hurt by someone within the past year? 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 Meds Allergies Allergy/AdvReac Type Severity Reaction Status Date / Time penicillamine Allergy Intermediate Unknown Verified 08/24/24 09:37 cephalexin [From Keflex] Allergy Mild unknown Verified 08/24/24 09:37 Penicillins Allergy Unknown Unknown Verified 08/24/24 09:37 Home Medications ?Medication ?Instructions ?Recorded ?Confirmed ?Last Taken ?Type ethosuximide 250 mg capsule mg PO 01/22/23 06/02/24 08/24/24 08:30 History ibuprofen 600 mg tablet 1,200 mg PO BID 01/22/23 08/24/24 08/22/24 History rosuvastatin 5 mg tablet 5 mg PO DAILY 01/22/23 06/02/24 08/24/24 08:30 History cetirizine 10 mg tablet 10 mg PO DAILY PRN Allergic 05/21/23 08/24/24 Unknown History Symptoms divalproex 500 mg tablet,extended 500 mg PO BID 05/21/23 08/24/24 Unknown History release 24 hr (Depakote ER) Exam Height,Weight and Vital Signs: Height 5 ft 5 in Weight 140.614 kg Assessment and Plan Assessment Anesthesia Assessment: Chart Reviewed Documented by User: Chelsea Gambino MD 08/24/24 10:48 COUNTS INCLUDE 234 BEDS AT THE [facility] Past Medical History Medical History Lumbago Chronic midline low back pain without sciatica Mixed hyperlipidemia Mild intellectual disability Seizure disorder Degenerative joint disease of left hip Left knee pain Left hip pain Lumbar spondylosis Surgical History History of Problems with Anesthesia: No Social History Social History Patient Tobacco Use Status: Former Tobacco user Smoked in Last 30 Days: No Use of substances other than those prescribed or required for medical reasons: No Have you been hit, kicked, punched, or otherwise hurt by someone within the past year? 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 Meds Allergies Allergy/AdvReac Type Severity Reaction Status Date / Time penicillamine Allergy Intermediate Unknown Verified 08/24/24 09:37 cephalexin [From Keflex] Allergy Mild unknown Verified 08/24/24 09:37 Penicillins Allergy Unknown Unknown Verified 08/24/24 09:37 Home Medications ?Medication ?Instructions ?Recorded ?Confirmed ?Last Taken ?Type ethosuximide 250 mg capsule mg PO 01/22/23 06/02/24 08/24/24 08:30 History ibuprofen 600 mg tablet 1,200 mg PO BID 01/22/23 08/24/24 08/22/24 History rosuvastatin 5 mg tablet 5 mg PO DAILY 01/22/23 06/02/24 08/24/24 08:30 History cetirizine 10 mg tablet 10 mg PO DAILY PRN Allergic 05/21/23 08/24/24 Unknown History Symptoms divalproex 500 mg tablet,extended 500 mg PO BID 05/21/23 08/24/24 Unknown History release 24 hr (Depakote ER) Exam Airway Mallampati Class: III TM Dist: >3cm Neck ROM: Full Loose/Missing/Broken Teeth: No Heart: RRR Lungs: CTA Assessment and Plan Assessment Anesthesia Assessment: Anesthesia Plan Discussed Final Anesthetic Review History of Problems with Anesthesia: No NPO: Yes ASA Class: III Final Preanesthetic Review: Meds/Allgs Chart Reviewed, Consent Obtained/Reviewed and Anes Risks/Benef Reviewed Patient Risk: Intermediate Procedure Risk: Low Anesthetic Plan Anesthetic Plan: MAC: Disposition: Standard PACU
--- OUTSIDE RECORDS SUMMARY | 2024-08-23 16:00 | XMS_ITS | Clinical Summary ---
Author Organization [facility] it Address [address] [place] [address] Care Team Providers Care Barrelhead Inspector Name Role Phone Sukhdev Lockwood MD Primary Care Provider [phone] Allergies Active Allergy Reactions Criticality Noted Date Comments Cephalexin 07/01/2021 Keflex Penicillin G 07/01/2021 Medications rosuvastatin (CRESTOR) 5 mg tablet Take 1 [...] by mouth 3 times daily. 2 Active rosuvastatin (CRESTOR) 5 mg tablet TAKE 1 TABLET BY MOUTH EVERY DAY 90 tablet 5 Active Active Problems Problem Noted Date Diagnosed Date Mild intellectual disability 07/01/2021 Overview (05/16/2024): With sister, who is her guardian, at provider visits. Seizure disorder (CMS/HCC V24, CMS/HCC V28) 06/14 Overview (05/16/2024): Neuro visit 05/16/2020, tolerating her [...] History Medical History Date Comments Seizure disorder (CMS/HCC V2 4, CMS/HCC V28) 07/01/2021 DX:Seizure disorder ([facility]); C OMMENT: Neuro visit 05/16/2020, tolerating her meds, no seizures. Mild mental subnormality 07/01/2021 DX:Mild mental subnormality; COMMENT: With sister, who is her guardian, at provider visits. 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 Family History Medical History Relation [...] Care Team (Late st Contact Info) Description 11/15/2024 3:00 PM EDT Office Visit Internal Medicine - [facility] [address], [place] [phone] Sukhdev Lockwood MD [address] [place] [address] Health Maintenance Due Date Last Done Comments [...] 2023-2 5 season) 2023 05/14/2021, 07/15/2020, 06/23/2020 Depression Screening 11/10/2024 11/11/2023 Influenza Vaccine (Season Ended) 2024 01/17/2022 Colorectal Cancer Screening: Colonoscopy 12/05/2026 12/05/2021 Cholesterol [...] age to complete this topic Meningococcal B Vaccine Aged Out No l onger eligible based on patient's age to complete [...] Health Maintenance Results * Depression Screening (11/11/2023) [facility] [place] Depression Screening abstracted [facility] Provider HEALTH MAINTENANCE Final Result * (ABNORMAL) Lipid panel (11/11/2023) [facility] LDL/HDL Ratio 4 0 - 4 Triglycerides 262(A) 0 - 150 mg/dL Cholesterol 221(A) 0 - 200 mg/dL HDL 50 >=40 mg/dL LDL Cholesterol 119(A) 0 - 100 mg/dL Blood Venous blood specimen / Unknown Result [facility] Provider LAB BLOOD ORDERABLES Jaqueline l Result * Hepatitis C Screening (07/18/2022) [facility] Hepatitis C Screening abstracted [facility] Provider HEALTH MAINTENANCE Final Result * Colonoscopy (12/05/2021) 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
--- NOTE | ~2024-08-24 | FL_ITS ---
EXAMINATION: FL GUIDANCE ONLY HISTORY: L3-5 RFA COMPARISON: None available. TECHNIQUE: Fluoroscopy time: 52.6 seconds. Cumulative Dose: 34.489 mGy. DAP: 4.9716 mGym2 Images: 3. FINDINGS: Images demonstrate electrodes on the left at the L3, L4, and L5 levels. FL/FL guidance in OR IMPRESSION: Fluoroscopy during procedure. Please see procedure report for additional information. Electronically signed by: Nahum Schmid MD 08/24/2024 01:26 PM EDT
[2024-08-24 09:40] VITALS: BMI 44.2
[2024-08-24] MEDS: Lactated Ringers 1,000 ML 100 ML IVCONT (10:12)
[2024-08-24 10:13] VITALS: BP 159/73; PULSE 67; RESP 17; TEMP 36.3; O2SAT 97
--- NOTE | 2024-08-24 11:27 | MHC.SHP ---
Pre-Procedural Eval Section A - 24 Hr Update-Section A only Date of Service: 08/24/24 The patient is an INPATIENT: No Changes since office visit: Yes Patient answered all questions The patient has been examined within 24 hours of the surgical procedure. The History & Physical has been completed within 30 days and I have reviewed it.: No Section B - Complete if H&P > 30 days Chief Complaint: Spondylosis without myelopathy/radiculopathy,pain Relevant Family History (Specify if Yes): No Relevant Social History: None Present Medications: see Short Stay Collaborative assessment Medical History: No relevant PMH History of Previous Operations: No relevant previous surgery Allergies: Allergies Allergy/AdvReac Type Severity Reaction Status Date / Time penicillamine Allergy Intermediate Unknown Verified 08/24/24 09:37 cephalexin [From Keflex] Allergy Mild unknown Verified 08/24/24 09:37 Penicillins Allergy Unknown Unknown Verified 08/24/24 09:37 Review of Systems Sugical H&P ROS: Negative: Constitution, Cardiovascular and Respiratory Exam Surgical H&P Exam: Normal: HEENT, Normal: Heart and Normal: Lungs Plan Diagnosis/Plan: Unchanged I have reviewed the history and physical and performed a pertinent physical examination on my patient. No changes have occurred unless specified. Time Spent With Patient Time: Total time managing care of this patient today ____ minutes.
--- NOTE | 2024-08-24 11:28 | P.OP_ITS ---
Operative Note Operative Note Date of Service: 08/24/24 Narrative: Preop diagnosis: Lumbar spondylosis Postop diagnosis: Same Radiofrequency lesioning medial branch nerves, bilateral L3, L4 medial branches and L5 dorsal ramus (L4/5 and L5/S1) (2 levels, 3 nerves) After obtaining written consent, pre-procedure blood pressure and heart rate were stable and recorded in the nursing record. Standard monitors were applied. The patient was placed in the prone position and sedated by the tar distributor operator. The lumbar area was prepped with chloraprep and draped in sterile fashion. The skin over the target for each medial branch nerve was anesthetized with 0.5% lidocaine. An 18 gauge radiofrequency cannula was advanced to each target site under fluoroscopic guidance. No paresthesias were elicited with needle placement and aspiration was negative for heme and CSF. Impedences were verified under 600 ohms. Motor testing (2 Hz) confirmed needle placement at each site within the appropriate voltage thresholds. Each site was injected with 0.5 ml 2% preservative-free lidocaine. Radiofrequency lesioning was performed for 90 seconds at 80 deg Celcius. Each site was then injected with 0.5ml ropivacaine 0.5%. The needle was removed, skin cleansed and a sterile bandage was applied. The same process was repeated for all levels. The patient tolerated the procedure well and no complications were encountered. The patient was then awakened and brought to the PACU. Following the procedure the patient's vital signs were stable. The patient was discharged home in good condition with post- procedural instructions. Time Out: Immediately prior to the procedure, the following was verbally confirmed that there is a signed consent form and that the correct patient, planned procedure, site and side are consistent with documentation and that necessary equipment and/or blood products are available prior to the start of the case. Complications: none EBL: <5 cc
--- NOTE | 2024-08-24 11:28 | P.BOP_ITS ---
Brief Operative Note Date of Service: 08/24/24 Pre-op diagnosis: Lumbar spondylosis Post-op diagnosis: same Procedure: Bilateral L3, L4 medial branches, L5 dorsal ramus radiofrequency ablation Surgeon: Anshul Grimes MD Anesthesia: MAC Was an Independent Producer used for this Procedure?: No Estimated blood loss (mL): 0 Pathology: none sent Condition: stable Disposition: PACU
[2024-08-24 12:30] VITALS: BP 139/72; PULSE 72; RESP 16; TEMP 36.4; O2SAT 100
[2024-08-24] MEDS: Acetaminophen 325 MG TABLET 975 MG PO (12:38)
[2024-08-24 12:45] VITALS: BP 140/69; PULSE 68; RESP 20; TEMP 36.4; O2SAT 99
== END 2024-08-24 14:31 | disposition home or self-care (01) ==
PROVIDERS: PCP Internal Medicine; Visit Provider Internal Medicine
PROC: (CPT 64635; principal; 2024-08-24 11:00)
DX: M47.816 Spondylosis without myelopathy or radiculopathy, lumbar region (principal); G89.29 Other chronic pain; M54.50 Low back pain, unspecified; M51.369 Other intervertebral disc degeneration, lumbar region without mention of lumbar back pain or lower extremity pain; M16.12 Unilateral primary osteoarthritis, left hip; M25.562 Pain in left knee; F70 Mild intellectual disabilities; G40.909 Epilepsy, unspecified, not intractable, without status epilepticus; E78.2 Mixed hyperlipidemia; Z91.81 History of falling; Z79.1 Long term (current) use of non-steroidal anti-inflammatories (NSAID); Z79.899 Other long term (current) drug therapy; Z88.0 Allergy status to penicillin; Z88.1 Allergy status to other antibiotic agents
CPT/HCPCS: 64635; 64636 ×2; J2003; J2250; J2704; J2795; J3010; J3301; Q9967

== ENCOUNTER → 2024-08-24 09:22 | Outpatient (BNV) | payer OTHER, SELFPAY | PROVIDERS: PCP Internal Medicine; Visit Provider Internal Medicine | DX: M54.16 Radiculopathy, lumbar region (principal) | CPT/HCPCS: 64635; 64636 ==

== ENCOUNTER 2024-09-29 13:23 | Outpatient (AMB) | payer OTHER, SELFPAY ==
--- NOTE | 2024-09-29 13:27 | MHC.OFFVIS ---
Vital Signs 09/29/24 13:32 Height 5 ft 5 in Weight 264 lb 8 oz BMI 44.0 BP 136/89 Blood Pressure Location Lt brachial Position Sitting Pulse 84 Pulse Source Pulse Oximeter Pulse Oximetry (%) 98 Oxygen Delivery Method Room Air Intake Visit Reasons: S/p B/l L3-L4 DR L5 MB RFA 08/24/24 Intake Note: Pain today 07/23 Housing Inspector Required: No Accompanied by: Sister Allergies penicillamine Allergy (Intermediate, Verified 09/29/24 13:32) Unknown cephalexin (From Keflex) Allergy (Mild, Verified 09/29/24 13:32) unknown Penicillins Allergy (Unknown, Verified 09/29/24 13:32) Unknown HPI Comments Details: Patient presents today to assess response to Bilateral Diagnostic L3-L4 DR L5 MB RFA on 08/24/[address] Grimes. She underwent bilateral L3-L4-L5 medial branch radiofrequency ablation on August 24, which initially provided significant pain relief, reducing her pain level from an 8 to a 4 or 5. The patient reports that her back pain improved initially but has since returned, particularly with activities such as bending and standing for prolonged periods. She denies any radicular symptoms to the lower extremities. The patient has experienced significant weight loss, reducing her BMI from 51 to 44, which may have contributed to some improvement in her back pain. She has been more active, which coincided with the recurrence of her pain. The patient also reports symptoms consistent with carpal tunnel syndrome, including numbness and tingling in the right hand, particularly when using her phone or during certain activities. She has not yet seen a Hand specialist for this issue. The patient has a seizure disorder, which limits certain treatment options, such as peripheral nerve stimulation. Denies any fever, chills, bladder or bowel dysfunction or saddle anesthesia. 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 Patient was referred to us by Dr. Toussaint, [facility] Physiatry services. She is accompanied by her sister Danika with whom the patient lives and also receives PRODUCTION MACHINE OPERATOR services. Patient reports mechanical fall a year ago which exacerbated her chronic back pain and since then has been progressively worsening. Pain is worst in the morning with worst pain intensity at 10/10 and least pain intensity at 5/10. Pain affects her daily functioning, mobility, sleep and social activities. Patient completed 12 weeks of physical therapy in August 2022 with no function improvement and very mild pain relief. Back pain is discogenic and axial without radiation into his lower extremities. Denies any weakness, foot drop, bladder or bowel dysfunction or saddle anesthesia. The back pain is function and mobility limiting and has been resistant to conservative treatments. Patient reports a long history of multiple injections, including back injections with good results. Patient and family would like to avoid back surgery and prefer to trial an injection first. Location Mid to lower back and sacral regions Duration Chronic pain for 1 year due to mechanical fall Characteristics of symptom or complaint Aching, stabbing, shooting, sharp, throbbing Aggravating or associated factors Standing, movements, walking, changing positions Relieving factors Tylenol, naproxen, Ibuprofen, back brace Treatment PT and Chiropractor therapies- no improvement. 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 Denies neck or shoulder pain. - Neurological: Reports numbness and tingling in the right hand, denies symptoms on the left All systems reviewed & are unremarkable except as noted in HPI and below Physical Exam Vital Signs: Last Vital Signs Pulse 84 09/29/24 13:32 BP 136/89 09/29/24 13:32 Pulse Ox 98 09/29/24 13:32 Oxygen Delivery Method Room Air 09/29/24 13:32 BMI result Body Mass Index 44.0 General: Appears afebrile. Morbidly obese. No acute distress. Alert and oriented. Mood and affect appropriate. Follows and participates in conversation appropriately. Respiratory effort is unlabored. No cough. Able to transition from sit to stand unassisted. Ambulates with bilaterally normal heel strike and toe off. General: Yes no CVA tenderness Back/Spine/Pelvis Other: Limited thoraco-lumbar ROM due to pain. Mild to moderate pain with extension. Positive facet loading bilaterally. Back: no CVA tenderness Cervical Spine: cervical ROM normal and No Cervical spine tenderness Thoracic/Lumbar Spine: thoracic and lumbar spine normal to inspection, No Thoracic/lumbar spine scar(s), Lasegue's sign negative, straight leg raise negative bilaterally, pain with thoraco-lumbar ROM (mild), paraspinal muscle tenderness, thoraco-lumbar ROM limited, No thoracic spinal tenderness and lumbar spinal tenderness at L4 and at L5 Pelvis: no buttock tenderness Sacroiliac joints: bilaterally nontender Extrem General: Yes capillary refill normal, Yes no clubbing, cyanosis or edema and Yes no calf tenderness Right upper extremity: wrist (Increased pain and tingling with wrist flexion. +Tinels +Phalens.) Details: normal to inspection, normal ROM, radial pulse present and ulnar pulse present; no tenderness, no swelling, no unusual warmth, no ecchymosis and no deformity Results Reviewed Results Reviewed: MR LUMBAR SPINE WITHOUT CONTRAST 04/17/23 CLINICAL INFORMATION: Spondylosis without myelopathy or radiculopathy, lumbar region. FINDINGS: No listhesis. No abnormal bone marrow signal. The vertebral body heights are preserved. Multilevel disc desiccation without significant disc height loss. Multilevel endplate osteophytosis. The visualized spinal cord is normal in caliber. No abnormal cord signal. The conus medullaris terminates at L1. T12-L1: No significant spinal canal or neural foraminal narrowing. L1-L2: No significant spinal canal or neural foraminal narrowing. L2-3: No significant spinal canal or neural foraminal narrowing. L3-4: No significant spinal canal or neural foraminal narrowing. L4-5: Bilateral facet arthrosis. No significant spinal canal or neural foraminal narrowing. L5-S1: Central disc protrusion with superimposed annular fissure. Bilateral facet arthrosis. No significant spinal canal stenosis. Mild left greater right neural foraminal narrowing with the disc abutting the right exiting L5 nerve roots. The paravertebral soft tissues are unremarkable. IMPRESSION: -No significant spinal canal stenosis. -At L5-S1, there is a central disc protrusion with superimposed annular fissure causing mild kugs-knmqypy-tvlj-right neural foraminal narrowing and abutment of the exiting right L5 nerve roots. XR hip LT w PEL1V 01/22/23 IMPRESSION: 1. Mild degenerative changes left knee. 2. Moderate degenerative changes left hip. XR LUMBOSACRAL SPINE WITH OBLIQUES 07/17/23 CLINICAL INFORMATION: Reason for Exam M54.50 - Low back pain, unspecified Vertebral body heights are maintained. Alignment is maintained. No instability on flexion extension views. Minimal degenerative change with small anterior disc osteophyte complexes. Disc space heights are maintained. Paravertebral soft tissues are unremarkable. IMPRESSION: Minimal degenerative change with small anterior disc osteophyte complexes. Disc space heights are maintained. No instability on flexion extension views. XR THORACIC SPINE 10/12/23 CLINICAL INFORMATION: Pain in thoracic spine. FINDINGS: Vertebral bodies normally aligned with normal height. Multilevel degenerative disc changes manifested by endplate osteophytes throughout the dorsal spine. No fracture or bone lesion. Surrounding bone and soft tissues normal. IMPRESSION: Mild multilevel spondylosis of the thoracic spine. Assessment & Plan Assessment & Plan (1) Carpal tunnel syndrome of right wrist: Code(s): G56.01 - Carpal tunnel syndrome, right upper limb Category: Medical (2) Lumbar spondylosis: Code(s): M47.816 - Spondylosis without myelopathy or radiculopathy, lumbar region Category: Medical (3) Lumbago: Code(s): M54.50 - Low back pain, unspecified Category: Medical (4) Lumbar degenerative disc disease: Code(s): M51.369 - Other intervertebral disc degeneration, lumbar region without mention of lumbar back pain or lower extremity pain Category: Medical (5) Lumbar disc herniation: Code(s): M51.26 - Other intervertebral disc displacement, lumbar region Category: Medical (6) Lumbar radiculopathy: Code(s): M54.16 - Radiculopathy, lumbar region Category: Medical Plan Schedule Bilateral L5-S1 TFESI with local and fluoroscopy to address low back pain with discogenic and radicular components. Expectations, risks and benefits were reviewed. Patient and family are aware they will be contacted to schedule this procedure. Patient is not candidate for neuromodulation, such as SCS or Sprint PNS trial given history of seizure disorder and intellectual disability. A referral to a Hand specialist is made for the evaluation of carpal tunnel syndrome, with a recommendation for a wrist splint to be used at night to alleviate symptoms. The patient is advised to continue her weight management efforts, as her significant weight loss has positively impacted her back pain. All questions were answered and the patient is in agreement of plan. Follow-up after injections and sooner as needed. Justification for interventional therapy: ? Patient with average pain > 6/10 ? Patient has exhausted conservative therapy, NSAIDS, physical and chiropractic therapy The risks, consequences, alternatives, and benefits of various treatment options were discussed with the patient in great detail, including conservative management, injections and procedures. Patient was informed and verbally consented to the use of an ambient scribe for clinic note documentation during this visit. Orders: Referrals Hand Surgery Referral G56.01 - Carpal tunnel syndrome, right upper limb Medications: New arm brace As directed 1 ea 0RF wrist support G56.01 - Carpal tunnel syndrome, right upper limb Patient Instructions: - Continue using Tylenol Arthritis, NSAID, heat/ice therapy, activity modifications as needed for pain management. - Use the wrist splint at night to help with hand symptoms. - Maintain current weight management efforts to support back pain relief. - Follow up after the epidural injection to assess pain relief. Coding Level of Care Code Est Pt Level 4 (31073) Complex EM visit Add On G2211 Diagnoses Carpal tunnel syndrome of right wrist G56.01 Lumbar spondylosis M47.816 Lumbago M54.50 Lumbar degenerative disc disease M51.369 Lumbar disc herniation M51.26 Lumbar radiculopathy M54.16
[2024-09-29 13:32] VITALS: BP 136/89; PULSE 84; O2SAT 98; BMI 44.0
--- OUTSIDE RECORDS SUMMARY | 2024-09-29 13:55 | XMS_ITS | Clinical Summary ---
Author Organization [facility] it Address [address] [place] [address] Care Team Providers Care Piercing Mill Operator Name Role Phone Sukhdev Lockwood MD Primary Care Provider [phone] Allergies Active Allergy Reactions Criticality Noted Date [...] V2 4, CMS/HCC V28) 07/01/2021 DX:Seizure disorder ([facility]); C OMMENT: Neuro visit 05/16/2020, tolerating her [...] PM EDT Office Visit Internal Medicine - [facility] [address], [place] [phone] Sukhdev Lockwood MD [address] [place] [address] Health Maintenance Due Date Last Done Comments [...] 06/23/2020 Depression Screening 11/10/2024 11/11/2023 Influenza Vaccine (#1) 2024 01/17/2022 Colorectal Cancer Screening: Colonoscopy 12/05/2026 [...] Health Maintenance Results * Depression Screening (11/11/2023) Pathologist [facility] Depression Screening abstracted [facility] Provider HEALTH MAINTENANCE Final Result * (ABNORMAL) Lipid panel (11/11/2023) [facility] LDL/HDL Ratio 4 0 - 4 Triglycerides 262(A) 0 - 150 mg/dL Cholesterol 221(A) 0 - 200 mg/dL HDL 50 >=40 mg/dL LDL Cholesterol 119(A) 0 - 100 mg/dL Blood Venous blood specimen / Unknown [facility] Provider LAB BLOOD ORDERABLES Jaqueline l Result * Hepatitis C Screening (07/18/2022) [facility] Hepatitis C Screening abstracted [facility] Provider HEALTH MAINTENANCE Final Result * Colonoscopy (12/05/2021) [facility] Colonoscopy no interpretation , abstracted Anatomical Region Laterality Modality Other [facility] Provider HEALTH MAINTENANCE Final Result from Last 3 Months or Most Recently Relevant to Health Maintenance [place] [address] [place] [address] MEDICARE Member Subscriber Plan / Payer (Ef fective 2022-Present) Name:Rosi Jung Relation to Subscriber:Self Name:Rosi Jung Payer ID:[id number] Group ID:[id number] Type:Not on file Address: [place] [address] [place] [phone] Advance Directives Documents on File Type Date Recorded Patient Gta Expl anation Health Care Decision (hx) 12/09/2021 AD LOPEZ DIRECTIVE Health Care Decision (hx) 12/09/2021 AD LOPEZ DIRECTIVE Care Teams Piercing Mill Operator Relationship Specialty Start Date End Date Sukhdev Lockwood MD [address] [facility] [place] [address] PCP - General Internal Medicine 05/14/21
== END 2024-09-29 13:46 | disposition home or self-care (01) ==
LOC: HO.PMC 13:24
PROVIDERS: PCP Internal Medicine; Visit Provider Nurse Practitioner Family
DX: G56.01 Carpal tunnel syndrome, right upper limb (principal); M47.816 Spondylosis without myelopathy or radiculopathy, lumbar region; M51.369 Other intervertebral disc degeneration, lumbar region without mention of lumbar back pain or lower extremity pain; M51.26 Other intervertebral disc displacement, lumbar region; M54.16 Radiculopathy, lumbar region
CPT/HCPCS: 99214; G2211

== ENCOUNTER → 2024-09-29 13:23 | Outpatient (BNVA) | payer OTHER, SELFPAY | PROVIDERS: PCP Internal Medicine; Visit Provider Nurse Practitioner Family | DX: G56.01 Carpal tunnel syndrome, right upper limb (principal); M47.816 Spondylosis without myelopathy or radiculopathy, lumbar region; M51.369 Other intervertebral disc degeneration, lumbar region without mention of lumbar back pain or lower extremity pain; M51.26 Other intervertebral disc displacement, lumbar region; M54.16 Radiculopathy, lumbar region | CPT/HCPCS: 99212 ==

== ENCOUNTER 2024-11-17 06:31 | Outpatient (REF) | payer OTHER, SELFPAY ==
--- OUTSIDE RECORDS SUMMARY | 2024-11-15 15:00 | XMS_ITS | Encounter Summary ---
Author Organization [facility] Address [address] [place] [address] Care Team Providers Care Fingernail Sculptor Name Role Phone Sukhdev Lockwood MD Primary Care Provider [phone] Reason for Referral * Consultation (Routine) - Pending Review Specialty Diagnoses / Procedures Referred By Mateo dawn Referred To Contact Nutrition Diagnoses Class 3 severe obesity due to excess calories without serious comorbidity with body mass index (BMI) of 40.0 to 44.9 in adult (CMS/HCC V24, CMS/HCC V28) Sukhdev Lockwood MD [address] [place] [id number] Phone: tel: fax: Referral ID Status Reason Start Date Expiration Date Visits Requested Visits Authorized [id number] Pending Review Specialty Services Required 11/15/2024 11/15/2025 1 1 * Imaging (Routine) - Authorized Specialty Diagnoses / Procedures Referred By Mateo dawn Referred To Contact Radiology Diagnoses Encounter for screening mammogram for malignant neoplasm of breast Procedures MG Mammo Digital Screening bilat Sukhdev Lockwood MD [address] [place] [address] Phone: tel: fax: [address] [address] Phone: tel: Referral ID Status Reason Start Date Expiration Date V isits Requested Visits Authorized [id number] Authorized 11/15/2024 11/15/2025 1 1 Reason for Visit * Reason Comments Physical Exam Encounter Details Date Type Department Care Team (Late st Contact Info) Description 11/15/2024 3:00 PM EDT [facility] [address] [place] [address] Sukhdev Lockwood MD [address] [place] [address] Encounter for annual physical exam (Primary Dx); Seizure disorder (CMS/HCC V24, CMS/[facility] V28); Mild intellectual disability; Mixed hyperlipidemia; Class 3 severe obesity due to excess calories without serious comorbidity with body mass index (BMI) of 40.0 to 44.9 in adult (CMS/HCC V24, CMS/[facility] V28); Encounter for screening mammogram for malignant neoplasm of breast Social History Tobacco Use Types Packs/Day Years Used Date Smoking Tobacco: Never Smokeless Tobacco: Never Tobacco Cessation:Counseling Given: Not Answered Alcohol Use Standard Drinks/Week Comments Never 0 (1 standard drink = 0.6 oz pur e alcohol) Housing Instability Answer Date Recorde d Are you worried that in the next 2 months you may not have stable housing? No 11/14/2024 Food Access & Nutrition Answer Date Rec orded Do you have access to a vari ety of food including fruits and vegetables? Yes 11/14/2024 Access to Healthcare Answer Date Record ed Within the last 3 months, ho w many times did you visit the emergency department for your medical care? 0 11/14/2024 Health Literacy Answer Date Recorded How often do you need to hav e someone help you when you read instructions, pamphlets, or other written material from your doctor or pharmacy? Always 11/14/2024 Caregiver: How often do you need to have someone help you when you read instructions, pamphlets, or other written material from your doctor or pharmacy? Not on file 11/14/2024 Financial Risk Answer Date Recorded How hard is it for you to pa y for the very basics like food, housing, medical care, and air conditioning / heating? Patient declined 11/14/2024 Transportation Answer Date Recorded Has the lack of transportati on kept you from meetings, work, or from getting things needed for daily living? No Has the lack of transportati on kept you from medical appointments or from getting medications? No 11/14/2024 Social Isolation Answer Date Recorded How often do you feel lonely or isolated from th ose around you? Never 11/14/2024 Food Risk Answer Date Recorded Within the past 12 months we worried whether our food would run out before we got money to buy more. Never true 11/14/2024 Within the past 12 months th e food we bought just didn't last and we didn't have money to get more. Never true 11/14/2024 Dependent Care Answer Date Recorded Do you need help finding or paying for care for your loved ones. For example, childcare teacher or elderly care for an older adult? No 11/14/2024 Education Answer Date Recorded Do you think completing more education or training, like finishing a GED, going to college, or learning a trade, would be helpful for you? N/A 11/14/2024 Employment and Income Answer Date Recor ded During the last four weeks, have you been actively looking for work? No 11/14/2024 Living Situation Answer Date Recorded What is your living situation? 0 11/14/2024 Comments Unknown Sex and Gender Information Value Date Recorded Sex Assigned at Not on file Legal Sex Female 4:59 PM EST Gender Identity Not on file Sexual Orientation Not on file documented as of this encounter Last Filed Vital Signs Vital Sign Reading Time Taken Comments Blood Pressure 98/56 11/15/2024 2:52 PM EDT Pulse 80 11/15/2024 2:52 PM EDT Temperature - - Respiratory Rate - - Oxygen Saturation - - Inhaled Oxygen Concentration - - Weight 120 kg (265 lb 8 oz) 11/15/2024 2:52 PM E DT Height 165.1 cm (5' 5 ) 11/15/2024 2:52 PM EDT Body Mass Index 44.18 11/15/2024 2:52 PM EDT documented in this encounter Progress Notes * Sukhdev Lockwood MD - 11/15/2024 3:00 PM EDT CHIEF COMPLAINT: Physical Exam IDENTIFIER: Rosi Jung is a 54 y.o. old female. I have obtained verbal consent from Rosi Jung prior to the recording. I have advised Rosi Jung that she may refuse the recording and require the recording to be turned off at any time during this encounter. History of Present Illness The patient presents for a physical exam. 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 She has a chipped tooth causing discomfort and has a dental appointment scheduled for Thursday. No recent hospitalizations or surgeries. Last mammogram was a year ago, normal colonoscopy a few years back. Has not seen a newspaper photographer for a Pap smear. 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 Never screened for HIV and does not wish to be tested. No chest pain, dyspnea, urinary issues, or depression. Under care of pain clinic for back pain. Nerve ablation at end of spine did not alleviate symptoms.Scheduled for bilateral L5-S1 injections on Thursday. Gained weight since last visit, now 265 pounds. Fears potential side effects from weight loss medications. Diet: cereal, yogurt, eggs, toast for breakfast; healthy balanced meals for lunch; regular meals for dinner; snacks at work; ice cream in the evening; juice. Diet: Cereal, yogurt, eggs, toast for breakfast; healthy balanced meals for lunch; regular meals for dinner; snacks at work; ice cream in the evening; juice Alcohol: No Tobacco: No Coffee/Tea/Caffeine-containing Drinks: Coffee Hyperlipidemia: Patient is currently on rosuvastatin 5 mg daily. Tolerating it well and denies any side effects. Most recent lipid panel done 12 months ago showed improvement in her LDL. Due for recheck. Seizure disorder: Patient follows with neurology Dr. Alegria at [facility] and is currently on Depakote 500 mg 2 times daily and ethosuximide 250 mg TID. ROS: GENERAL: No malaise, significant weight loss or fever HEENT: No changes in hearing or vision, nose bleeds or other nasal problems NECK: No lumps, goiter, pain or significant neck swelling RESPIRATORY: No cough, wheezing or shortness of breath CARDIOVASCULAR: No chest pain, leg swelling or palpitations BREAST: no lumps, discharge, pain or change in skin GI: No abdominal discomfort, blood in stools or black stools : No dysuria, frequency or incontinence LINEN MANAGER: No abnormal vaginal bleeding or abnormal vaginal discharge. MUSCULOSKELETAL: No joint pain or swelling, back pain, or muscle pain. SKIN: No lesions, rash or itching PSYCH: No sleep disturbance, mood disorder or recent psychosocial stressors. HEMATOLOGY/LYMPHOLOGY No prolonged bleeding, easy bruisability or swollen nodes ENDOCRINE: No cold or heat intolerance, polyuria, polydipsia or goiter. NEURO: No persistent headache, syncope, seizures, weakness or numbness PAST MEDICAL HISTORY: Patient Active Problem List Diagnosis Date Noted Mild intellectual disability 07/01/2021 Seizure disorder ([facility] V24, [facility] V28) 07/01/2021 SOCIAL HISTORY: Social History Tobacco Use Smoking status: Never Smokeless tobacco: Never Substance Use Topics Alcohol use: Never FAMILY HISTORY: Family Status Relation Name Status Mother Father Sister Alive MGM PGM MGF PGF No partnership data on file Family History Problem Relation Name Age of Onset Lung cancer Mother Coronary artery disease Father Stroke Father No Known Problems Sister Coronary artery disease Maternal Grandmother Coronary artery disease Paternal Grandmother ACTIVE MEDICATIONS: Outpatient Medications Marked as Taking for the 11/15/24 encounter (Office Visit) with Sukhdev Lockwood MD Medication Sig Dispense Refill acetaminophen (TYLENOL 8 HOUR) 650 mg 8 hr tablet acetaminophen (TYLENOL) 650 MG CR tablet Take 1 Tablet by mouth every 8 hours as needed. cetirizine (ZyrTEC) 10 mg tablet TAKE 1 TABLET BY MOUTH DAILY NEEDED (ALLERGY). ethosuximide (ZARONTIN) 250 mg capsule Take 1 Capsule by mouth 3 times daily. rosuvastatin (CRESTOR) 5 mg tablet TAKE 1 TABLET BY MOUTH EVERY DAY 90 tablet 0 ALLERGIES: Cephalexin and Penicillin g PHYSICAL EXAM: Blood pressure 98/56, pulse 80, height 1.651 m (65 ), weight 120 kg (265 lb 8 oz). Body mass index is 44.18 kg/m??. BMI is greater than 25.0 (above the normal range) - see Plan APPEARANCE: Alert and in no acute distress EYES: PERRLA, conjunctiva and sclera normal. EARS: External ears normal. Canals clear. TMs normal. NOSE/SINUS: Nares normal. Septum midline. Mucosa normal. No drainage or sinus tenderness. THROAT: no erythema or exudates NECK: Neck supple, no adenopathy, thyroid symmetric and of normal size HEART: RRR with normal S1 and S2 ,no murmurs, no gallops, no JVD appreciated LUNG: clear to auscultation BREAST (FEMALE): Deferred to process engineering intern LYMPH NODES: grossly normal ABDOMEN: Bowel sounds normoactive, no bruits, soft, non-tender, without organomegaly or palpable masses LINEN MANAGER (FEMALE): Deferred to process engineering intern BACK: No pain to palpation with good flexion and extension EXTREMITIES: Extremities warm and well perfused without clubbing, cyanosis, or edema NEURO: Awake, alert and oriented x 3 with symmetrical reflexes SKIN: Skin color, texture, turgor normal. No rashes or lesions. LABS/IMAGING: No results found for: WBC , HGB , HCT , MCV No results found for: NA , K , CO2 , CL , BUN , GLU , ALB , ALKPHOS , TP Lab Results Component Value Date CHOL 221 (A) 11/11/2023 LDL 119 (A) 11/11/2023 HDL 50 11/11/2023 TRIG 262 (A) 11/11/2023 No results found for: TSH IMPRESSION: 1. Encounter for annual physical exam 2. Seizure disorder ([facility] V24, [facility] V28) 3. Mild intellectual disability 4. Mixed hyperlipidemia 5. Class 3 severe obesity due to excess calories without serious comorbidity with body mass index (BMI) of 40.0 to 44.9 in adult (CMS/HCC V24, CMS/[facility] V28) 6. Encounter for screening mammogram for malignant neoplasm of breast PLAN: 1. Health maintenance: The patient presented for an evaluation of general health. As part of this visit, we reviewed the following issues, which are considered an essential part of preventative health in this age group: - Breast cancer screening, which includes clinical exam and mammograms annually - mammogram ordered - Colon cancer screening (colonoscopy every 10 years/annual FOBT plus flexi sigmoidoscopy every 5 years/double-contrast BE every 5 years/Cologuard every 3 years/Annual FOBT) - up to date - Cervical cancer testing every 1-5 years - patient is up-to-date - Blood pressure annual screening performed - Cholesterol screening every five years - ordered - Osteoporosis prevention including calcium/vitamin D intake, weight bearing exercise & smokingcessation - Nutritional and exercise counseling - patient advised to pursue at least 30 minutes of exercise most days of the week, limit portion sizes, eat breakfast, and avoid eating after dinner - Counseling of injury prevention including fire prevention, smoke alarms and seat belt usage - Screening for depression - over the past TWO WEEKS, been bothered by little INTEREST or PLEASURE in doing things or by feeling DOWN, DEPRESSED, or HOPELESS? No - Screening for domestic abuse - Screening for Type 2 diabetes mellitus in those with hypertension and/or hyperlipidemia - Prevention of and/or testing for infectious diseases, which may include Chlamydia, Gonorrhea, Syphilis, HIV, Hepatitis C and Tuberculosis - advice about STD prevention provided - One time hepatitis C screening in all adults - Education about skin cancer - Recommendations about immunizations - patient is due for Influenza immunization, Pneumonia immunization, Herpes zoster (shingles) immunization, and COVID-19 vaccination but defers this - Recommendation of an eye exam for glaucoma every 2-4 years in this age range - patient is up-to-date - Screening for substance abuse (including tobacco, alcohol, and recreational drugs) - see Substance & Sexuality section of medical record - Management of menopause - up to date - Genetic cancer risk screening - NO INDICATION: Hereditary Cancer Syndrome Risk Assessment completed and evaluated. No indication found for genetic testing at this time. - In addition to reviewing these issues, I have reviewed the following sections of the chart: Past Medical History, Social History, and Social History - Did you have a dental visit in the last 12 months? Yes - Did you have a dental problem in the last 6 months? No Assessment & Plan 1. Health maintenance: - Weight increased by 10 pounds, now 265 pounds. - Blood pressure within normal range. - Advised to receive shingles vaccine from pharmacy. - Mammogram will be ordered. 2. Back pain: - Continues follow-up with pain clinic. - Nerve ablation at end of spine did not help. - Scheduled for bilateral L5-S1 injections on Thursday. 3. Seizure disorder: - Follows up with neurology every six months, due for visit next week. - Continue with current regimen. 5. Hyperlipidemia: - Blood work to be rechecked today to monitor cholesterol. - Continue with rosuvastatin. 6. Obesity: - A1c test conducted today. - Advised to reduce snacking and increase water intake. Referral to fur blower made. Follow-up: Patient will follow up in 6 months. Orders Placed This Encounter Procedures MG Mammo Digital Screening bilat Standing Status: Future Standing Expiration Date: 11/15/2025 Order Specific Question: Is the patient ? Answer: No Order Specific Question: In what REGION should this be scheduled? Answer: [facility] [[id number]] Order Specific Question: In what [place] LOCATION should this be scheduled? Answer: [facility] [[id number]] Lipid panel with reflex to direct LDL Standing Status: Future Number of Occurrences: 1 Standing Expiration Date: 11/15/2025 Comprehensive metabolic panel Standing Status: Future Number of Occurrences: 1 Standing Expiration Date: 11/15/2025 Hemoglobin A1c Standing Status: Future Number of Occurrences: 1 Standing Expiration Date: 11/15/2025 Order Specific Question: Release to patient Answer: Immediate [1] Ambulatory referral to Nutrition Services Standing Status: Future Standing Expiration Date: 11/15/2025 Referral Priority: Routine Referral Type: Consultation Referral Reason: Specialty Services Required Requested Specialty: Nutrition Number of Visits Requested: 1 Sukhdev Lockwood MD on 11/15/2024 at 3:16 PM EDT documented in this encounter Plan of Treatment Upcoming Encounters Date Type Department Care Team (Late st Contact Info) Description 05/17/2025 3:30 PM EST [facility] [address] [place] [address] Sukhdev Lockwood MD [address] [place] [address] Scheduled Orders Name Type Priority Associated Diagnoses Orde r Schedule MG Mammo Digital Screening bilat Imaging Routine Encounter for screening mammogram for malignant neoplasm of breast 1 Occurrences starting 11/15/2024 until 11/15/2025 Scheduled Referrals Name Type Priority Associated Diagnoses Order Schedule Ambulatory referral to Nutrition Services Outpatient Referral Routine Class 3 severe obesity due to excess calories without serious comorbidity with body mass index (BMI) of 40.0 to 44.9 in adult (CMS/HCC V24, CMS/HCC V28) 1 Occurrences starting 11/15/2024 until 11/15/2025 documented as of this encounter Results * Hemoglobin A1c (11/15/2024 3:16 PM EDT) [facility] Hemoglobin A1C 5.7 <6.5 % LAB CHEMISTRY METHOD 11/15/2024 10:21 PM EDT [facility] Mean Bld Glu Estim. 117 mg/dL LAB CHEMISTRY METHOD 11/15/2024 10:21 PM EDT [facility] Blood Venous blood specimen / Unknown Venipuncture / Unknown 11/15/2024 3:16 PM EDT 11/15/2024 3:16 PM EDT us Sukhdev Lockwood MD LAB BLOOD ORDERABLES Final Resu lt [facility] [address] [place] [address], [place] [phone] * Comprehensive metabolic panel (11/15/2024 3:16 PM EDT) [facility] Sodium 139 133 - 145 mmol/L LAB CHEMISTRY METHOD 11/15/2024 8:05 PM [facility] Potassium 4.4 3.5 - 5.5 mmol/L LAB CHEMISTRY METHOD 11/15/2024 8:05 PM [facility] Chloride 105 96 - 110 mmol/L LAB CHEMISTRY METHOD 11/15/2024 8:05 PM [facility] CO2 28 21 - 32 mmol/L LAB CHEMISTRY METHOD 11/15/2024 8:05 PM [facility] Anion Gap 6 3 - 11 LAB CHEMISTRY METHOD 11/15/2024 8:05 PM [facility] Glucose 88 70 - 100 mg/dL LAB CHEMISTRY METHOD 11/15/2024 8:05 PM [facility] BUN 19 5 - 25 mg/dL LAB CHEMISTRY METHOD 11/15/2024 8:05 PM [facility] Creatinine 0.98 0.50 - 1.10 mg/dL LAB CHEMISTRY METHOD 11/15/2024 8:05 PM [facility] eGFR 68 >=60 mL/min/1. 73m2 LAB CHEMISTRY METHOD 11/15/2024 8:05 PM [facility] Comment:Calculation based on the Chronic Kidney Disease Epidemiology Collaboration (CKD-EPI) equation refit without adjustment for race. BUN/Creatinine Ratio 19.4 LAB CHEMISTRY METHOD 11/15/2024 8:05 PM [facility] Calcium 9.7 8.5 - 10.5 mg/dL LAB CHEMISTRY METHOD 11/15/2024 8:05 PM [facility] AST (SGOT) 12 10 - 42 unit/L LAB CHEMISTRY METHOD 11/15/2024 8:05 PM [facility] ALT (SGPT) 17 10 - 60 unit/L LAB CHEMISTRY METHOD 11/15/2024 8:05 PM [facility] Alkaline Phosphatase 83 42 - 121 unit/L LAB CHEMISTRY METHOD 11/15/2024 8:05 PM [facility] Total Protein 7.3 6.0 - 8.0 g/dL LAB CHEMISTRY METHOD 11/15/2024 8:05 PM [facility] Albumin 4.0 3.2 - 5.0 g/dL LAB CHEMISTRY METHOD 11/15/2024 8:05 PM [facility] Total Bilirubin 0.2 0.0 - 1.4 mg/dL LAB CHEMISTRY METHOD 11/15/2024 8:05 PM [facility] Blood Venous blood specimen / Unknown Venipuncture / Unknown 11/15/2024 3:16 PM EDT 11/15/2024 3:16 PM EDT us Sukhdev Lockwood MD LAB BLOOD ORDERABLES Final Resu lt [facility] [address] [place] [address], [place] [phone] * (ABNORMAL) Lipid panel with reflex to direct LDL (11/15/2024 3:16 PM EDT) Cholesterol 224(H) 0 - 200 mg/dL LAB CHEMISTRY METHOD 11/15/2024 8:05 PM EDT [facility] Triglycerides 279(H) 0 - 150 mg/dL LAB CHEMISTRY METHOD 11/15/2024 8:05 PM EDT [facility] HDL 48 >=40 mg/dL LAB CHEMISTRY METHOD 11/15/2024 8:05 PM [facility] LDL Calculated 120(H) 0 - 100 mg/dL LAB CHEMISTRY METHOD 11/15/2024 8:05 [facility] Comment:Estimated LDL Calcul ated using equation: Total cholesterol - HDL cholesterol - (Triglycerides/5) VLDL Cholesterol Jose Manuel 55.8 mg/dL LAB CHEMISTRY METHOD 11/15/2024 8:05 PM EDT [facility] Non HDL Chol. (LDL+VLDL) 176(H) <145 mg/dL LAB CHEMISTRY METHOD 11/15/2024 8:05 PM [facility] Chol/HDL Ratio 4.7(H) 0.0 - 4.4 LAB CHEMISTRY METHOD 11/15/2024 8:05 PM [facility] Blood Venous blood specimen / Unknown Venipuncture / Unknown 11/15/2024 3:16 PM EDT 11/15/2024 3:16 PM EDT us Sukhdev Lockwood MD LAB BLOOD ORDERABLES Final Resu lt [facility] [address] [place] [address], [place] [phone] documented in this encounter Visit Diagnoses Diagnosis Encounter for annual physical exam- Primary Seizure disorder (CMS/HCC V24, CMS/HCC V28) Unspecified epilepsy without mention of intractable epilepsy Mild intellectual disability Mild mental retardation Mixed hyperlipidemia Class 3 severe obesity due to excess calories without serious comorbidity with body mass index (BMI) of 40.0 to 44.9 in adult ([facility] V24, [facility] V28) Encounter for screening mammogram for malignant neoplasm of breast documented in this encounter Discontinued Medications Medication Sig Discontinue Reason Start Date End Da te rosuvastatin (CRESTOR) 5 mg tablet Take 1 tablet (5 mg total) by mouth 1 (one) time each day. Discontinued by another clinician 01/04/2024 11/15/2024 documented as of this encounter Additional Health Concerns Assessment Noted Time PHQ-9 Depression Total Score: 0 11/15/19 25 8:14 PM EDT documented as of this encounter Care Teams Fingernail Sculptor Relationship Specialty Start Date End Date Sukhdev Lockwood MD [address] [place] [address] [place] [id number] PCP - General Internal Medicine 05/14/21 documented as of this encounter
--- NOTE | ~2024-11-17 | FL_ITS ---
EXAMINATION: XR FLUOROSCOPY WITH IMAGES CLINICAL INFORMATION: Radiculopathy, lumbar region. Pain management procedure. COMPARISON: None available. TECHNIQUE: Fluoroscopy provided to: Dr. Grimes Fluoroscopy time: 0.4 minutes DAP: 0.0544 mGycm2 Images: 5 FINDINGS: 5 fluoroscopic spot images taken during lumbar pain management procedure. Please refer to the full operative report for details. FL/FL guidance in treatment room IMPRESSION: Fluoroscopic guidance. Electronically signed by: Darrel Ames MD 11/17/2024 02:29 PM EDT
--- OUTSIDE RECORDS SUMMARY | 2024-11-17 06:34 | XMS_ITS ---
Author Name [facility] Organization Unknown Care Team Organization Name Specialty Phone Email Start Date End Da te [facility] Nile Almanza Primary Care 11/20/202210/14 [facility] Sukhdev Lockwood Primary Care 08/22/20222023
--- OUTSIDE RECORDS SUMMARY | 2024-11-17 06:34 | XMS_ITS | Clinical Summary ---
Author Organization [place] [address] [facility] Building Address [address] [place], [place] [address], [place] [address] Phone Care Team Providers Care Fluid Designer Name Role Phone Sukhdev Lockwood MD Primary Care Provider [phone] Allergies Active Allergy Reactions Criticality Noted Date Comments Cephalexin 07/01/2021 Keflex Penicillin G 07/01/2021 Medications acetaminophen (TYLENOL 8 HOUR) 650 mg 8 hr tablet acetaminophen (TYLENOL) 650 MG CR tablet Take 1 Tablet by mouth every 8 hours as needed. Active cetirizine (ZyrTEC) 10 mg tablet TAKE 1 TABLET BY MOUTH DAILY NEEDED (ALLERGY). 09/04/19 22 Active divalproex (DEPAKOTE) [address] tablet Take 1 tablet (500 mg total) by mouth 2 (two) times a day. divalproex (DEPAKOTE) 500 MG EC tablet Take 1 Tablet by mouth 3 times daily 08/15/19 22 Active ethosuximide (ZARONTIN) 250 mg capsule Take 1 Capsule by mouth 3 times daily. 07/02/19 22 Active rosuvastatin (CRESTOR) 5 mg tablet TAKE 1 TABLET BY MOUTH EVERY DAY 90 tablet 10/01/19 25 Active rosuvastatin (CRESTOR) 5 mg tablet Take 1 tablet (5 mg total) by mouth 1 (one) time each day. 01/04/20 24 025 Discontinu ed(Discont inued by another clinician) Active Problems Problem Noted Date Diagnosed Date Mild intellectual disability 07/01/2021 Overview (05/16/2024): With sister, who is her guardian, at provider visits. Seizure disorder (CMS/[facility] V24, [facility] V28) 06/14 Overview (05/16/2024): Neuro visit 05/16/2020, tolerating her meds, no seizures. Encounters Date Type Department Care Team Description 11/15/2024 3:00 PM EDT Office Visit Internal Medicine - [facility] [address] [place] [id number] Sukhdev Lockwood MD Encounter for annual physical exam (Primary Dx); Seizure disorder ([facility] V24, [facility] V28); Mild intellectual disability; Mixed hyperlipidemia; Class 3 severe obesity due to excess calories without serious comorbidity with body mass index (BMI) of 40.0 to 44.9 in adult ([facility] V24, [facility] V28); Encounter for screening mammogram for malignant neoplasm of breast from Last 3 Months Immunizations Name Administration Dates Next Due Influenza [...] History Medical History Date Comments Seizure disorder ([facility] V2 4, [facility] V28) 07/01/2021 DX:Seizure disorder ([facility]); C OMMENT: Neuro visit 05/16/2020, tolerating [...] care for your loved ones. For example, early childhood coordinator or elderly care for an older adult? [...] Mass Index 44.18 11/15/2024 2:52 PM EDT Plan of Treatment Upcoming Encounters Date Type Department Care Team (Late st Contact Info) Description 05/17/2025 3:30 PM EST Office Visit Internal Medicine - [facility] [address] [place] [address] Sukhdev Lockwood MD [address] [place] [address] Health Maintenance Due Date Last Done Comments Breast Cancer Screening 1969 Hepatitis B Vaccines (1 of 3 - 19+ 3-dose series) 1988 Cervical Cancer Screening: Pap Smear 1990 Zoster Vaccines (1 of 2) 2019 HIV Screening 02/12/2022 Medicare Annual Wellness Visit 02/12/2022 Social Influencers of Health Screening 11/14/2025 11/14/2024 Colorectal Cancer Screening: Colonoscopy 12/05/2026 12/05/2021 Cholesterol Screening (Lipid Panel) 11/15/2029 11/15/2024, 11/11/2023, 11/11/2023 DTaP,Tdap,and Td Vaccines (2 - Td or Tdap) 07/18/2032 07/18/2022 COVID-19 Vaccine Discontinued 05/20/2021, 03/2021, 07/15/2020, Additional history exists Influenza Vaccine Discontinued 01/17/2022 Hepatitis C Screening Completed 07/18/2022 Depression Screening Completed 11/14/2024, 11/11/19 24 HIB Vaccines Aged Out No longer eligi [...] age to complete this topic Pneumococcal Vaccine: 50+ Years Discontinued RSV Immunization Patients Under 20 months Aged Out No longer eligible based on patient's age to complete this topic Varicella Vaccines Aged Out No longer eligible based on patient's age to complete this topic Procedures Procedure Name Priority Date/Time Associated Diagnosis Comments LIPID PANEL WITH REFLEX TO DIRECT LDL Routine 11/15/2024 3:16 PM EDT Mixed hyperlipidemia Class 3 severe obesity due to excess calories without serious comorbidity with body mass index (BMI) of 40.0 to 44.9 in adult (CMS/HCC V24, CMS/[facility] V28) COMPREHENSIVE METABOLIC PANEL Routine 11/15/2024 3:16 PM EDT Mixed hyperlipidemia Class 3 severe obesity due to excess calories without serious comorbidity with body mass index (BMI) of 40.0 to 44.9 in adult (CMS/HCC V24, CMS/HCC V28) HEMOGLOBIN A1C Routine 11/15/2024 3:16 PM EDT Mixed hyperlipidemia Class 3 severe obesity due to excess calories without serious comorbidity with body mass index (BMI) of 40.0 to 44.9 in adult (CMS/HCC V24, CMS/HCC V28) DEPRESSION SCREENING Routine 11/11/2023 HEPATITIS C SCREENING Routine 07/18/2022 COLONOSCOPY Routine 12/05/2021 from Last 3 Months or Most Recently Relevant to Health Maintenance Results * (ABNORMAL) Lipid panel with reflex to direct LDL (11/15/2024 3:16 PM EDT) Cholesterol 224(H) 0 - 200 mg/dL LAB CHEMISTRY METHOD 11/15/2024 8:05 PM EDT [facility] Triglycerides 279(H) 0 - 150 mg/dL LAB CHEMISTRY METHOD 11/15/2024 8:05 PM EDT [facility] HDL 48 >=40 mg/dL LAB CHEMISTRY METHOD 11/15/2024 8:05 PM T [facility] LDL Calculated 120(H) 0 - 100 mg/dL LAB CHEMISTRY METHOD 11/15/2024 8:05 PM EDT [facility] Comment:Estimated LDL Calcul ated using equation: Total cholesterol - HDL cholesterol - (Triglycerides/5) VLDL Cholesterol Jose Manuel 55.8 mg/dL LAB CHEMISTRY METHOD 11/15/2024 8:05 PM EDT [facility] Non HDL Chol. (LDL+VLDL) 176(H) <145 mg/dL LAB CHEMISTRY METHOD 11/15/2024 8:05 PM T [facility] Chol/HDL Ratio 4.7(H) 0.0 - 4.4 LAB CHEMISTRY METHOD 11/15/2024 8:05 PM EDT [facility] Blood Venous blood specimen / Unknown Venipuncture / Unknown 11/15/2024 3:16 PM EDT 11/15/2024 3:16 PM EDT us Sukhdev Lockwood MD LAB BLOOD ORDERABLES Final Resu lt [facility] [address] [place] [address], [place] [phone] * Hemoglobin A1c (11/15/2024 3:16 PM EDT) Pathologist [facility] Hemoglobin A1C 5.7 <6.5 % LAB CHEMISTRY METHOD 11/15/2024 10:21 PM T [facility] Mean Bld Glu Estim. 117 mg/dL LAB CHEMISTRY METHOD 11/15/2024 10:21 PM [facility] Blood Venous blood specimen / Unknown Venipuncture / Unknown 11/15/2024 3:16 PM EDT 11/15/2024 3:16 PM EDT Sukhdev Lockwood MD LAB BLOOD ORDERABLES Final Resu lt [facility] [address] [place] [address], * Comprehensive metabolic panel (11/15/2024 3:16 PM EDT) [facility] Sodium 139 133 - 145 mmol/L LAB CHEMISTRY METHOD 11/15/2024 8:05 PM [facility] Potassium 4.4 3.5 - 5.5 mmol/L LAB CHEMISTRY METHOD 11/15/2024 8:05 PM [facility] Chloride 105 96 - 110 mmol/L LAB CHEMISTRY METHOD 11/15/2024 8:05 PM [facility] CO2 28 21 - 32 mmol/L LAB CHEMISTRY METHOD 11/15/2024 8:05 PM [facility] Anion Gap 6 3 - 11 LAB CHEMISTRY METHOD 11/15/2024 8:05 PM [facility] Glucose 88 70 - 100 mg/dL LAB CHEMISTRY METHOD 11/15/2024 8:05 PM [facility] BUN 19 5 - 25 mg/dL LAB CHEMISTRY METHOD 11/15/2024 8:05 PM [facility] Creatinine 0.98 0.50 - 1.10 mg/dL LAB CHEMISTRY METHOD 11/15/2024 8:05 PM [facility] eGFR 68 >=60 mL/min/1. 73m2 LAB CHEMISTRY METHOD 11/15/2024 8:05 PM [facility] Comment:Calculation based on the Chronic Kidney Disease Epidemiology Collaboration (CKD-EPI) equation refit without adjustment for race. BUN/Creatinine Ratio 19.4 LAB CHEMISTRY METHOD 11/15/2024 8:05 PM [facility] Calcium 9.7 8.5 - 10.5 mg/dL LAB CHEMISTRY METHOD 11/15/2024 8:05 PM [facility] AST (SGOT) 12 10 - 42 unit/L LAB CHEMISTRY METHOD 11/15/2024 8:05 PM [facility] ALT (SGPT) 17 10 - 60 unit/L LAB CHEMISTRY METHOD 11/15/2024 8:05 PM [facility] Alkaline Phosphatase 83 42 - 121 unit/L LAB CHEMISTRY METHOD 11/15/2024 8:05 PM [facility] Total Protein 7.3 6.0 - 8.0 g/dL LAB CHEMISTRY METHOD 11/15/2024 8:05 PM [facility] Albumin 4.0 3.2 - 5.0 g/dL LAB CHEMISTRY METHOD 11/15/2024 8:05 PM [facility] Total Bilirubin 0.2 0.0 - 1.4 mg/dL LAB CHEMISTRY METHOD 11/15/2024 8:05 PM [facility] Blood Venous blood specimen / Unknown Venipuncture / Unknown 11/15/2024 3:16 PM EDT 11/15/2024 3:16 PM EDT us Sukhdev Lockwood MD LAB BLOOD ORDERABLES Final Resu lt [facility] [address] [place] [address], [place] [phone] * Depression Screening (11/11/2023) Depression Screening abstracted Historical Provider HEALTH MAINTENANCE Final Result * Hepatitis C Screening (07/18/2022) Hepatitis C Screening abstracted Historical Provider HEALTH MAINTENANCE Final Result * Colonoscopy (12/05/2021) Colonoscopy no interpretation , abstracted Anatomical Region Laterality Modality Other Historical Provider HEALTH MAINTENANCE Final Result from Last 3 Months or Most Recently Relevant to Health Maintenance Insurance [employer] Member Subscriber Plan / Payer (Ef fective 2022-Present) Name:JEN JUNG Relation to Subscriber:Self Name:Jen Jung Payer ID:[id number] Group ID:[id number] Type:Not on file Address: [facility] [address] [id number] Advance Directives Documents on File Type Date Recorded Patient Milliner Helper Expl anation Health Care Decision (hx) 12/09/2021 AD LOPEZ DIRECTIVE Health Care Decision (hx) 12/09/2021 AD LOPEZ DIRECTIVE Care Teams Fluid Designer Relationship Specialty Start Date End Date Sukhdev Lockwood MD [facility] [place] [address] PCP - General Internal Medicine 05/14/21
== END 2024-11-17 06:32 | disposition home or self-care (01) ==
LOC: CF 06:31
PROVIDERS: Visit Provider Internal Medicine
DX: M54.16 Radiculopathy, lumbar region (principal)
CPT/HCPCS: 64483; J1100; J2003; Q9967

== ENCOUNTER 2024-11-17 11:34 | Outpatient (AMB) | payer OTHER, SELFPAY ==
[2024-11-17 11:49] VITALS: BP 120/82; PULSE 72; RESP 16; O2SAT 98
--- NOTE | 2024-11-17 11:49 | A.OFFVIS_ITS ---
Vital Signs 11/17/24 11:49 BP 120/82 Blood Pressure Location Lt brachial Position Sitting Respiration 16 Pulse 72 Pulse Source Pulse Oximeter Pulse Oximetry (%) 98 Oxygen Delivery Method Room Air Intake Visit Reasons: Bilateral L5-S1 TFESI Innersole Maker Required: No Allergies penicillamine Allergy (Intermediate, Verified 11/17/24 11:49) Unknown cephalexin (From Keflex) Allergy (Mild, Verified 11/17/24 11:49) unknown Penicillins Allergy (Unknown, Verified 11/17/24 11:49) Unknown Medication List - Last Reconciled 11/17/24 by Sepideh Moser LPN arm brace As directed cetirizine 10 mg PO DAILY PRN divalproex 500 mg PO BID ethosuximide mg PO ibuprofen 1,200 mg PO BID rosuvastatin 5 mg PO DAILY HPI HPI Bilateral L5-S1 TFESI: Details: Patient presents for scheduled procedure. Denies any recent cough, cold, infection, fever or other significant changes in medical history since last office visit. 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 The patient was placed in the prone position on the fluoroscopy table. The lumbosacral area was prepped with chloraprep, allowed to dry and draped in sterile fashion. Using fluoroscopy, the skin overlying our target was anesthetized with 0.5% lidocaine. A 22 gauge 3.5 inch spinal needle was advanced to the safe triangle in the upper pole of the right L5 foramen. No paresthesias were elicited with needle placement and aspiration was negative for blood and CSF. Correct needle position was confirmed with approximately 1 ml contrast dye (Omnipaque 180 mg/ml) injected under real-time fluoroscopy. No evidence of vascular or intrathecal uptake was seen and there was both epidural and peripheral spread of the contrast agent. 10 mg dexamethasone plus 1 ml containing 0.5% lidocaine was slowly injected. The needle was flushed and removed. The same process was repeated for the other side. The skin was cleansed and a sterile bandages were applied. The patient tolerated the procedure well and no complications were encountered. Following the procedure the patient's vital signs were stable. The patient was discharged home in good condition with post-procedural instructions. Time Out: Immediately prior to the procedure, the following was verbally confirmed that there is a signed consent form and that the correct patient, planned procedure, site and side are consistent with documentation and that necessary equipment and/or blood products are available prior to the start of the case. Complications: none EBL: <5 cc [id number] - Lumbar/Sacral (bilateral) Procedure code (CPT) selection complete Assessment & Plan Assessment & Plan (1) Lumbar radiculopathy: Code(s): M54.16 - Radiculopathy, lumbar region Category: Medical Plan Patient is status post bilateral L5-S1 transforaminal epidural steroid injections. Patient tolerated procedure well and was discharged home in stable condition with discharge instructions. All questions were answered. We will follow-up via telephone or in clinic to assess response to therapy. A follow-up appointment was made during today's visit. Orders: Orders FL guidance in treatment room 11/17/24 M54.16 - Radiculopathy, lumbar region Coding Level of Care Code Procedure Only Diagnoses Lumbar radiculopathy M54.16 CPT Codes Transforaminal Epidural Steroid Inj - TESI 3: 46621 - Lumbar/Sacral ([id number])
== END 2024-11-17 12:29 | disposition home or self-care (01) ==
LOC: HO.PMCPRC 11:34
PROVIDERS: PCP Internal Medicine; Visit Provider Internal Medicine
DX: M54.16 Radiculopathy, lumbar region (principal)
CPT/HCPCS: 64483

== ENCOUNTER 2024-12-16 09:20 | Outpatient (AMB) | payer OTHER, SELFPAY ==
--- NOTE | 2024-12-16 09:30 | A.OFFVIS_ITS ---
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 She underwent bilateral L5-S1 transforaminal epidural steroid injections, which have reduced her pain to a level of 4 out of 10, although the pain persists at night, particularly when lying down. The patient also reports left hip and knee pain, which has been exacerbated by increased activity and exercise. Previous imaging in 2022 indicated mild to moderate arthritis in both knees. The patient has not previously received treatment for her hip and knee pain, and she has not engaged in physical therapy for these areas. Pain Description - Pain level reduced to 4 out of 10 after injections, but persists at night, especially when lying down. - Left hip and knee pain exacerbated by activity and exercise. - Pain localized to the side of the hip, not the groin. Physical Exam - Appears afebrile. - Alert and oriented. - Mood and affect appropriate. - Follows and participates in conversation appropriately. Results - Imaging in 2022 showed mild to moderate arthritis in both knees. Pain Management - Affect: Pain persists at night, impacting sleep. - Analgesia: Pain level at 4 out of 10 after injections. - Activities of Daily Living: Pain exacerbated by activity and exercise. 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 Physical Exam Vital Signs: Last Vital Signs Pulse 73 12/16/24 09:31 Resp 16 12/16/24 09:31 BP 120/84 12/16/24 09:31 Pulse Ox 97 12/16/24 09:31 Oxygen Delivery Method Room Air 12/16/24 09:31 BMI result Body Mass Index 43.4 Assessment & Plan Assessment & Plan (1) Left knee DJD: Code(s): M17.12 - Unilateral primary osteoarthritis, left knee Category: Medical Qualifiers: Osteoarthritis type: primary Qualified Code(s): M17.12 - Unilateral primary osteoarthritis, left knee (2) Degenerative joint disease of left hip: Code(s): M16.12 - Unilateral primary osteoarthritis, left hip Category: Medical Qualifiers: Osteoarthritis type: primary Qualified Code(s): M16.12 - Unilateral primary osteoarthritis, left hip (3) Greater trochanteric pain syndrome: Code(s): M25.559 - Pain in unspecified hip Category: Medical Plan Plan Patient was informed and verbally consented to the use of an ambient scribe for clinic note documentation during this visit. 1. Lumbar Radiculopathy - Continue monitoring pain levels and effectiveness of previous injections. - Follow-up in two months to reassess pain management strategies. 2. Left Hip Arthritis - Initiate physical therapy to improve mobility and reduce pain. - Consider topical NSAIDs like Voltaren for pain management. 3. Left Knee Arthritis - Initiate physical therapy to improve mobility and reduce pain. - Consider topical NSAIDs like Voltaren for pain management. 4. Greater Trochanteric Pain Syndrome - Initiate physical therapy to address pain and improve function. Discussion Notes I discussed with the patient the presence of arthritis in the left hip and knee, and the potential benefits and risks of cortisone injections, including weight gain as a side effect. We considered the use of topical NSAIDs like Voltaren for pain management, acknowledging its limited efficacy for hip pain. The patient was advised to start physical therapy to improve mobility and manage pain, with a follow-up scheduled in two months to evaluate progress and consider further interventions if necessary. Patient Instructions - Start physical therapy for hip and knee pain. - Use Voltaren as needed for knee pain relief. - Follow up in two months to reassess pain management and treatment effectiveness. Orders: Orders PT Evaluation and Treatment 12/16/24 M16.12 - Unilateral primary osteoarthritis, left hip, M17.12 - Unilateral primary osteoarthritis, left knee, M25.559 - Pain in unspecified hip Medications: New walker As directed 1 ea 0RF Coding Level of Care Code Est Pt Level 4 (58314) Diagnoses Primary osteoarthritis of left knee M17.12 Osteoarthritis type: primary Primary osteoarthritis of left hip M16.12 Osteoarthritis type: primary Greater trochanteric pain syndrome M25.559
[2024-12-16 09:31] VITALS: BP 120/84; PULSE 73; RESP 16; O2SAT 97; BMI 43.4
--- OUTSIDE RECORDS SUMMARY | 2024-12-16 09:51 | XMS_ITS | Clinical Summary ---
Author Organization [place] [address] [facility] Building Address [address] [place], [place] [address] [address] Phone Care Team Providers Care Wire Web Worker Name Role Phone Sukhdev Lockwood MD Primary Care Provider [phone] Allergies Active Allergy Reactions Criticality Noted Date [...] PM EDT Office Visit Internal Medicine - [facility] [address] [place] [phone] Sukhdev Lockwood MD Encounter for annual physical exam (Primary Dx); Seizure disorder ([facility] V24, [facility] V28); Mild intellectual disability; Mixed hyperlipidemia; Class 3 severe obesity due to excess calories without serious comorbidity with body mass index (BMI) of 40.0 to 44.9 in adult ([facility] V24, [facility] V28); Encounter for screening mammogram for malignant neoplasm of breast from Last 3 Months Immunizations Immunization Administration Dates Next Due Influenza Quadravalent, MDCK [...] History Medical History Date Comments Seizure disorder ([facility] V2 4, [facility] V28) 07/01/2021 DX:Seizure disorder ([facility]); C OMMENT: Neuro visit 05/16/2020, [...] care for your loved ones. For example, maternal child nurse or elderly care for an older adult? [...] Date Recorded What is your living situation? Unrecognized valu e 11/14/2024 Comments Unknown Sex and Gender Information [...] PM EST [facility] [address] [place] [address] Sukhdev Lockwood MD [address] [place] [address] Health Maintenance Due Date Last Done Comments [...] (2 - Td or Tdap) 07/18/2032 07/18/2022 RSV Immunization Adult Patients (1 - 1-dose 75+ series) 2044 COVID-19 Vaccine Discontinued 05/20/2021, 03/2021, 07/15/2020, Additional [...] 40.0 to 44.9 in adult (CMS/HCC V24, CMS/[facility] V28) COMPREHENSIVE METABOLIC PANEL Routine 11/15/2024 3:16 PM EDT Mixed hyperlipidemia Class 3 severe obesity due to excess calories without serious comorbidity with body mass index (BMI) of 40.0 to 44.9 in adult (CMS/HCC V24, CMS/[facility] V28) HEMOGLOBIN A1C Routine 11/15/2024 3:16 PM EDT Mixed hyperlipidemia Class 3 severe obesity due to excess calories without serious comorbidity with body mass index (BMI) of 40.0 to 44.9 in adult (CMS/HCC V24, [facility] V28) DEPRESSION SCREENING Routine 11/11/2023 HEPATITIS C [...] [facility] LDL Calculated 120(H) 0 - 100 mg/dL LAB CHEMISTRY METHOD 11/15/2024 8:05 PM EDT [facility] Comment:Estimated LDL Calcul ated using equation: Total cholesterol - HDL cholesterol - (Triglycerides/5) VLDL Cholesterol Jose Manuel 55.8 mg/dL LAB CHEMISTRY METHOD 11/15/2024 8:05 PM EDT [facility] Non HDL Chol. (LDL+VLDL) 176(H) <145 mg/dL LAB CHEMISTRY METHOD 11/15/2024 8:05 PM EDT [facility] Chol/HDL Ratio 4.7(H) 0.0 - 4.4 LAB CHEMISTRY METHOD 11/15[facility]24 [facility] Blood Venous blood specimen / Unknown Venipuncture / Unknown 11/15/2024 3:16 PM EDT 11/15/2024 3:16 PM EDT us Sukhdev Lockwood MD LAB BLOOD ORDERABLES Final Resu lt [facility] [address] [place] [address], * Hemoglobin A1c (11/15/2024 3:16 PM EDT) Pathologist [facility] Hemoglobin A1C 5.7 <6.5 % LAB CHEMISTRY METHOD 11/15/2024 10:21 PM [facility] Mean Bld Glu Estim. 117 mg/dL LAB CHEMISTRY METHOD 11/15/2024 10:21 PM [facility] Blood Venous blood specimen / Unknown Venipuncture / Unknown 11/15/2024 3:16 PM EDT 11/15/2024 3:16 PM EDT us Sukhdev Lockwood MD LAB BLOOD ORDERABLES Final Resu lt [facility] [address] [place] [address], * Comprehensive metabolic panel (11/15/2024 3:16 PM EDT) [facility] Sodium 139 133 - 145 mmol/L LAB CHEMISTRY METHOD 11/15/2024 8:05 PM [facility] Potassium 4.4 3.5 - 5.5 mmol/L LAB CHEMISTRY METHOD 11/15/2024 8:05 PM [facility] Chloride 105 96 - 110 mmol/L LAB CHEMISTRY METHOD 11/15/2024 8:05 PM [facility] CO2 28 21 - 32 mmol/L LAB CHEMISTRY METHOD 11/15/2024 8:05 PM [facility] Anion Gap 6 3 - 11 LAB CHEMISTRY METHOD 11/15/2024 8:05 PM [facility] Glucose 88 70 - 100 mg/dL LAB CHEMISTRY METHOD 11/15/2024 8:05 PM [facility] BUN 19 5 - 25 mg/dL LAB CHEMISTRY METHOD 11/15/2024 8:05 PM [facility] Creatinine 0.98 0.50 - 1.10 mg/dL LAB CHEMISTRY METHOD 11/15/2024 8:05 PM [facility] eGFR 68 >=60 mL/min/1. 73m2 LAB CHEMISTRY METHOD 11/15/2024 8:05 PM [facility] Comment:Calculation based on the Chronic Kidney Disease Epidemiology Collaboration (CKD-EPI) equation refit without adjustment for race. BUN/Creatinine Ratio 19.4 LAB CHEMISTRY METHOD 11/15/2024 8:05 PM [facility] Calcium 9.7 8.5 - 10.5 mg/dL LAB CHEMISTRY METHOD 11/15/2024 8:05 PM [facility] AST (SGOT) 12 10 - 42 unit/L LAB CHEMISTRY METHOD 11/15/2024 8:05 PM [facility] ALT (SGPT) 17 10 - 60 unit/L LAB CHEMISTRY METHOD 11/15/2024 8:05 PM [facility] Alkaline Phosphatase 83 42 - 121 unit/L LAB CHEMISTRY METHOD 11/15/2024 8:05 PM [facility] Total Protein 7.3 6.0 - 8.0 g/dL LAB CHEMISTRY METHOD 11/15/2024 8:05 PM [facility] Albumin 4.0 3.2 - 5.0 g/dL LAB CHEMISTRY METHOD 11/15/2024 8:05 PM [facility] Total Bilirubin 0.2 0.0 - 1.4 mg/dL LAB CHEMISTRY METHOD 11/15/2024 8:05 PM [facility] Blood Venous blood specimen / Unknown Venipuncture / Unknown 11/15/2024 3:16 PM EDT 11/15/2024 3:16 PM EDT us Sukhdev Lockwood MD LAB BLOOD ORDERABLES Final Resu lt [facility] [address] [place] [address], * Hm Depression Screening (11/11/2023) Depression Screening abstracted Historical [...] ID:[id number] Group ID:[id number] Type:Not on file Address: [place] [address] [place] [phone] Advance Directives Documents on File Type Date Recorded Patient County Engineer Expl anation Health Care Decision (hx) 12/09/2021 AD LOPEZ DIRECTIVE Health Care Decision (hx) 12/09/2021 AD LOPEZ DIRECTIVE Care Teams Wire Web Worker Relationship Specialty Start Date End Date Sukhdev Lockwood MD [address] [place] [id number] PCP - General Internal Medicine 05/14/21
== END 2024-12-16 09:57 | disposition home or self-care (01) ==
LOC: HO.PMC 09:21
PROVIDERS: PCP Internal Medicine; Visit Provider Internal Medicine
DX: M17.12 Unilateral primary osteoarthritis, left knee (principal); M16.12 Unilateral primary osteoarthritis, left hip; M25.559 Pain in unspecified hip
CPT/HCPCS: 99213

== ENCOUNTER → 2024-12-16 09:20 | Outpatient (BNVA) | payer OTHER, SELFPAY | PROVIDERS: PCP Internal Medicine; Visit Provider Internal Medicine | DX: M17.12 Unilateral primary osteoarthritis, left knee (principal); M16.12 Unilateral primary osteoarthritis, left hip; M25.552 Pain in left hip; M54.16 Radiculopathy, lumbar region | CPT/HCPCS: 99212 ==

== ENCOUNTER 2025-01-11 15:56 | Outpatient (AMB) | payer OTHER, MEDICAID, SELFPAY ==
--- NOTE | 2025-01-11 16:02 | A.OFFVIS_ITS ---
Intake Visit Reasons: 6m Accompanied by: Sister Allergies cephalexin (From Keflex) Allergy (Mild, Verified 01/11/25 16:13) unknown Penicillins Allergy (Unknown, Verified 01/11/25 16:13) Unknown Medication List - Last Reconciled 01/11/25 by Zari Keen CNP arm brace As directed cetirizine 10 mg PO DAILY PRN divalproex 500 mg PO BID 90 days ethosuximide mg PO TID ibuprofen 1,200 mg PO BID rosuvastatin 5 mg PO DAILY walker As directed HPI Comments Details: 54-year-old RH woman with epilepsy. 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 She was about 3 or 4 years old when she had a generalized convulsion. She also had petit mal seizures. EEG in 2021 revealed gen 3 Hz spike and wave discharges. She was doing okay. Seizures were controlled with current medications. No medication side effects. Sleep was not so good due to ongoing back pain. 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 Review of Systems Const Denies chills, Denies daytime sleepiness, Denies difficulty sleeping, Denies fatigue, Denies fever(s), Denies frequent falls, Denies headache(s), Denies increased appetite, Denies poor appetite, Denies snoring, Denies weakness, Denies weight gain and Denies weight loss Eyes Denies loss of vision ENT Denies vertigo, Denies dizziness and Denies headache(s) Card Denies chest pain at rest, Denies chest pain with activity, Denies syncope, Denies leg edema and Denies palpitations Resp Denies snoring GI Denies constipation, Denies heartburn, Denies diarrhea and Denies nausea Denies urinary frequency, Denies urinary incontinence and Denies urinary urgency Musc Denies abnormal gait, Denies numbness and Denies tingling Skin/Breast Denies dry skin and Denies rash Neuro Denies abnormal gait, Denies vertigo, Denies dizziness, Denies syncope, Denies frequent falls, Denies headache(s), Denies lack of coordination, Denies loss of vision, Denies memory loss, Denies numbness, Denies restless legs, Denies seizure-like activity, Denies tingling, Denies paresthesias, Denies tremor(s) and Denies weakness Psych Denies anxiety, Denies depression, Denies auditory hallucinations, Denies memory loss, Denies visual hallucinations and Denies suicidal ideation Endo Denies fatigue and Denies palpitations Physical Exam Const Other: General Appearance:? normal, in no acute distress. Skin:? no rashes, no significant birthmarks. Heart:? S1, S2 normal, no murmurs. Lungs:? clear anteriorly and posteriorly. Extremities:? no edema. Psych:? alert, oriented, cognitive function intact, cooperative with exam. Neuro Other: Mental Status:?Normal attention, orientation, memory and affect.? Cranial Nerves:?Pupils are equal, round and reactive to light. External occular muscles are intact. Visual spring are full. Face: mild left sided palsy. Facial sensations are normal. Tongue is midline. Palate elevates symmetrically. Shoulder shrugging is normal. Hearing to bedside conversation is normal. Sensory Exam:?....? Coordination:?No ataxia,?no titubation.? Gait Exam: Within normal limits. Extrapyramidal System:?No tremor, rigidity with normal facial expressions.? Pronator Drift:?Not present.? Involuntary Movements:?No tremors seen.? Speech:?Normal.? Results Reviewed Results Reviewed: EEG at [facility] in August 2021: 3 Hz spike and wave discharges, sometims right myra focus MRI brain [facility] at [facility] in 2021: mild diff atrophy Assessment & Plan Assessment & Plan (1) Epilepsy: Code(s): G40.909 - Epilepsy, unspecified, not intractable, without status epilepticus Category: Medical Qualifiers: Epilepsy type: unspecified Intractability: not intractable Status epilepticus: without status epilepticus Qualified Code(s): G40.909 - Epilepsy, unspecified, not intractable, without status epilepticus Plan: Continue ethosuximide 250mg 1 capsule three times a day. Continue Depakote DR 500mg 1 tablet twice a day. 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 Medications: Changed From ethosuximide PO TID To ethosuximide 250 mg PO TID 270 caps 1RF 90 days Refilled divalproex 500 mg PO BID 180 tabs 1RF 90 days Coding Level of Care Code Est Pt Level 4 (60596) Diagnoses Nonintractable epilepsy without status epilepticus, unspecified epilepsy type G40.909 Epilepsy type: unspecified Intractability: not intractable Status epilepticus: without status epilepticus Facial neuropathy G51.9
--- OUTSIDE RECORDS SUMMARY | 2025-01-11 20:04 | XMS_ITS | Clinical Summary ---
Author Organization [place] [address] [facility] Building Address [facility] [place] [address] Phone Care Team Providers Care Medical Imaging Specialist Name Role Phone Sukhdev Lockwood MD Primary Care Provider [phone] Allergies Active Allergy Reactions Criticality Noted Date [...] TABLET BY MOUTH EVERY DAY 90 tablet 01/03/20 25 Active rosuvastatin (CRESTOR) 5 mg tablet TAKE 1 TABLET BY MOUTH EVERY DAY 90 tablet 10/01/19 25 025 Discontinued Active Problems Problem Noted Date Diagnosed Date Mild intellectual disability 07/01/2021 Overview (05/16/2024): With sister, who is her guardian, at provider visits. Seizure disorder (CMS/HCC V24, CMS/HCC V28) 04/1 10/2021 Overview (05/16/2024): Neuro visit 05/16/2020, tolerating her meds, no seizures. Encounters Date Type Department Care Team Description 01/02/2025 2:30 PM EDT Nutrition Internal Medicine - [place] [address] [place] [address] Morbid obesity ([facility] [place], [facility] V28) (Primary Dx) 11/15/2024 3:00 PM EDT Office Visit Internal Medicine - [facility] [address] [place] [address] Sukhdev Lockwood MD Encounter for annual physical exam (Primary Dx); Seizure disorder ([facility] V24, [facility] V28); Mild intellectual disability; Mixed hyperlipidemia; Class 3 severe obesity due to excess calories without serious comorbidity with body mass index (BMI) of 40.0 to 44.9 in adult ([facility] V24, [facility] V28); Encounter for screening mammogram for malignant [...] Medical History Date Comments Seizure disorder ([facility] [place]2 4, [facility]) 07/01/2021 DX:Seizure disorder ([facility]); C OMMENT: Neuro visit 05/16/2020, tolerating her [...] care for your loved ones. For example, child development assistant or elderly care for an older adult? [...] - Inhaled Oxygen Concentration - - Weight 118 kg (260 lb) 01/02/2025 3:35 PM EDT Height 165.1 cm (5' 5 ) 01/02/2025 3:35 PM EDT Body Mass Index 43.27 01/02/2025 3:35 PM EDT Plan of Treatment Upcoming Encounters Date Type Department Care Team (Late st Contact Info) Description 05/17/2025 3:30 PM EST Office Visit Internal Medicine - [address] [address] Sukhdev Lockwood MD [address] [place] [id number] Health Maintenance Due Date Last Done Comments Breast Cancer Screening 1969 Hepatitis B Vaccines (1 of 3 - 19+ 3-dose series) 1988 Cervical Cancer Screening: Pap Smear 1990 RSV Immunization Adult Patients (1 - Risk 50-74 years 1-dose series) 2019 Zoster Vaccines (1 of 2) 2019 [...] 40.0 to 44.9 in adult (CMS/HCC V24, [facility] V28) COMPREHENSIVE METABOLIC PANEL Routine 11/15/2024 3:16 PM EDT Mixed hyperlipidemia Class 3 severe obesity due to excess calories without serious comorbidity with body mass index (BMI) of 40.0 to 44.9 in adult (CMS/HCC V24, [facility] V28) HEMOGLOBIN A1C Routine 11/15/2024 3:16 PM [...] mg/dL LAB CHEMISTRY METHOD 11/15/2024 8:05 PM [facility] Triglycerides 279(H) 0 - 150 mg/dL LAB CHEMISTRY METHOD 11/15/2024 8:05 PM [facility] HDL 48 >=40 mg/dL LAB CHEMISTRY METHOD 11/15/2024 8:05 PM [facility] LDL Calculated 120(H) 0 - 100 mg/dL LAB CHEMISTRY METHOD 11/15/2024 8:05 PM [facility] Comment:Estimated LDL Calcul ated using equation: Total cholesterol - HDL cholesterol - (Triglycerides/5) VLDL Cholesterol Jose Manuel 55.8 mg/dL LAB CHEMISTRY METHOD 11/15/2024 8:05 PM [facility] Non HDL Chol. (LDL+VLDL) 176(H) <145 mg/dL LAB CHEMISTRY METHOD 11/15/2024 8:05 PM [facility] Chol/HDL Ratio 4.7(H) 0.0 - 4.4 LAB CHEMISTRY METHOD 11/15/2024 8:05 PM [facility] Blood Venous blood specimen / Unknown Venipuncture / Unknown 11/15/2024 3:16 PM EDT 11/15/2024 3:16 PM EDT Sukhdev Lockwood MD LAB BLOOD ORDERABLES Final Resu lt Performing Organization Address City/[facility]/ZIP Co de Phone Number [facility] [address] [place] [address], [place] [phone] * Hemoglobin A1c (11/15/2024 3:16 PM EDT) Pathologist [facility] Hemoglobin A1C 5.7 <6.5 % LAB CHEMISTRY METHOD 11/15/2024 10:21 PM EDT [facility] Mean Bld Glu Estim. 117 mg/dL LAB CHEMISTRY METHOD 11/15/2024 10:21 PM EDT [facility] Blood Venous blood specimen / Unknown Venipuncture / Unknown 11/15/2024 3:16 PM EDT 11/15/2024 3:16 PM EDT Sukhdev Lockwood MD LAB BLOOD ORDERABLES Final Resu lt Performing Organization Address City/[facility]/ZIP Co de Phone Number [facility] [address] [place] [address], [place] [phone] * Comprehensive metabolic panel (11/15/2024 3:16 PM EDT) Pathologist [facility] Sodium 139 133 - 145 mmol/L LAB CHEMISTRY METHOD 11/15/2024 8:05 PM EDT [facility] Potassium 4.4 3.5 - 5.5 mmol/L LAB CHEMISTRY METHOD 11/15/2024 8:05 PM EDT [facility] Chloride 105 96 - 110 mmol/L LAB CHEMISTRY METHOD 11/15/2024 8:05 PM EDT [facility] CO2 28 21 - 32 mmol/L LAB CHEMISTRY METHOD 11/15/2024 8:05 PM EDT [facility] Anion Gap 6 3 - 11 LAB CHEMISTRY METHOD 11/15/2024 8:05 PM EDT [facility] Glucose 88 70 - 100 mg/dL LAB CHEMISTRY METHOD 11/15/2024 8:05 PM [facility] BUN 19 5 - 25 mg/dL LAB CHEMISTRY METHOD 11/15/2024 8:05 PM [facility] Creatinine 0.98 0.50 - 1.10 mg/dL LAB CHEMISTRY METHOD 11/15/2024 8:05 PM [facility] eGFR 68 >=60 mL/min/1. 73m2 LAB CHEMISTRY METHOD 11/15/2024 8:05 PM [facility] Comment:Calculation based on the Chronic Kidney Disease Epidemiology Collaboration (CKD-EPI) equation refit without adjustment for race. BUN/Creatinine Ratio 19.4 LAB CHEMISTRY METHOD 11/15/2024 8:05 PM [facility] Calcium 9.7 8.5 - 10.5 mg/dL LAB CHEMISTRY METHOD 11/15/2024 8:05 PM [facility] AST (SGOT) 12 10 - 42 unit/L LAB CHEMISTRY METHOD 11/15/2024 8:05 PM [facility] ALT (SGPT) 17 10 - 60 unit/L LAB CHEMISTRY METHOD 11/15/2024 8:05 PM [facility] Alkaline Phosphatase 83 42 - 121 unit/L LAB CHEMISTRY METHOD 11/15/2024 8:05 PM [facility] Total Protein 7.3 6.0 - 8.0 g/dL LAB CHEMISTRY METHOD 11/15/2024 8:05 PM [facility] Albumin 4.0 3.2 - 5.0 g/dL LAB CHEMISTRY METHOD 11/15/2024 8:05 PM [facility] Total Bilirubin 0.2 0.0 - 1.4 mg/dL LAB CHEMISTRY METHOD 11/15/2024 8:05 PM [facility] Blood Venous blood specimen / Unknown Venipuncture / Unknown 11/15/2024 3:16 PM EDT 11/15/2024 3:16 PM EDT Sukhdev Lockwood MD LAB BLOOD ORDERABLES Final Resu lt [facility] [address] [place] [address], [place] [phone] * Depression Screening (11/11/2023) Pathologist [facility] Depression Screening abstracted Historical Provider HEALTH MAINTENANCE Final Result * Hepatitis C Screening (07/18/2022) [facility] Hepatitis C Screening abstracted Historical Provider HEALTH MAINTENANCE Final Result * Colonoscopy (12/05/2021) Pathologist [facility] Colonoscopy no interpretation , abstracted Anatomical Region Laterality Modality Other Historical Provider HEALTH MAINTENANCE Final Result from Last 3 Months or Most Recently Relevant to Health Maintenance Insurance [employer] MEDICARE Member Subscriber Plan / Payer (Ef fective 2022-Present) Name:JEN JUNG Relation to Subscriber:Self Name:Jen Jung Payer ID:[id number] Group ID:[id number] Type:Not on file Address: [place] [address] [place] [address] [phone] Advance Directives Documents on File Type Date Recorded Patient Tour Escort Expl anation Health Care Decision (hx) 12/09/2021 AD LOPEZ DIRECTIVE Health Care Decision (hx) 12/09/2021 AD LOPEZ DIRECTIVE Care Teams Medical Imaging Specialist Relationship Specialty Start Date End Date Sukhdev Lockwood MD [address] [place] [address] PCP - General Internal Medicine 05/14/21
== END 2025-01-11 16:13 | disposition home or self-care (01) ==
LOC: HO.HSM 15:56
PROVIDERS: PCP Internal Medicine; Referring Provider Internal Medicine; Visit Provider Registered Nurse
DX: G40.909 Epilepsy, unspecified, not intractable, without status epilepticus (principal); G51.9 Disorder of facial nerve, unspecified
CPT/HCPCS: 99214

== ENCOUNTER → 2025-01-11 15:56 | Outpatient (BNVA) | payer OTHER, SELFPAY | PROVIDERS: PCP Internal Medicine; Referring Provider Internal Medicine; Visit Provider Registered Nurse | DX: G40.909 Epilepsy, unspecified, not intractable, without status epilepticus (principal); G51.9 Disorder of facial nerve, unspecified; Z79.899 Other long term (current) drug therapy | CPT/HCPCS: 99212 ==